=== PATIENT | male | born 1955 | race Caucasian/White ===

== ENCOUNTER 2020-09-28 13:30 | IRF | payer MEDICARE, SELFPAY ==
[2020-09-28 13:28] VITALS: BP 124/81; PULSE 62; RESP 20; TEMP 36.1; O2SAT 99; BMI 33.6
--- NOTE | 2020-09-28 13:40 | ADMGEN ---
Arrived to floor via wheelchair pushed by at 1303. This patient, Ross Guadarrama, was admitted to [facility] Room 221-02. Patient/family oriented to hospital policies and general routines including ID bracelet, bed and alarms, visiting hours, pain management, procedures, bathroom and other care routines, personal items, smoking policy, room service/diet, and visiting hours. Information on how to activate the Rapid Response Team has been discussed. Patient/Family are encouraged to report perceived risks to care and to ask questions if they do not understand what they are told or what they should do.
[2020-09-28] MEDS: traMADol HCL (*CRX) 50 MG TABLET 100 MG PO (14:40)
--- NOTE | 2020-09-28 16:15 | WPDREHABHP ---
H&P: HPI History of Present Illness Date/Time: 09/28/20 16:15 Chief Complaint: lumbar stenosis Narrative: HISTORY OF PRESENT ILLNESS: The patient's primary rehab impairment category is other orthopedic 09 The etiologic diagnosis is Foraminal stenosis of lumbar region, status post L3-L4 OLIF, internal fixation and anterior lumbar plate, L3-L4 posterior spinal fusion I saw this patient [id number] on 09/28/2020 The patient is a 64-year-old male with prior medical history of lumbar stenosis, obesity, osteoarthritis, ulcerative colitis, restless leg syndrome OA, SANJAY treated with BiPAP and CPAP who presented to [facility] on 09/24/2020 with low back pain. He has had increased back pain, bilateral foot numbness, significant loss of balance with daily falls, and increased difficulty with ADLs with worsening symptoms over the last few months. MRI showed multilevel degenerative disc and facet disease worse at L3-4. L2-3 with mild to moderate bilateral foraminal stenosis, L3-L4 mild canal stenosis and severe bilateral foraminal stenosis, L4-5 mild canal stenosis, and moderate right and severe left foraminal stenosis. On 09/24/2020 the patient underwent lumbar surgery by Dr. Castanon of an L3-4 OLIF, internal fixation with anterior lumbar plate, and L3 -L4 posterior spinal fusion. Patient's SETTLEMENT WORKER was discontinued on 09/27. His pain is now controlled with ice tramadol and Tylenol. Patient was issued a TLSO brace and it is to be worn at all times when out of bed. Dressings are to remain intact and can be reinforced. Patient is allowed to shower if dressings remain dry. Patient reports right leg pain has resolved after surgery. He now complains of left lower extremity weakness left groin numbness left lateral thigh numbness. DVT prophylaxis is Lovenox 40 mg daily. Prior level of function. Patient lives with his in a split-level home with main living space on top floor. Patient reports that he has 1 step to enter his home. He then has 7 steps with a landing and additional 7 steps to get to the main floor. The patient reports he was able to go up and down the stairs prior to admission, however he would have to take several rest breaks and was a very slow process. Patient was independent with ADLs prior however the last few months with progressive pain and weakness his has been assisting him. Patient reports he is try to remain as independent as possible. Patient's is retired and is available 247. She is in good health and is agreeable to be the caregiver. The patient was receiving therapy weekly prior to admission. Current level of function: TLSO is to be worn at all times when out of bed. Patient prefers ice for back pain and tramadol and Tylenol. Complains of right lower extremity that has been resolved with surgery. However patient has pain to the left lower extremity weakness, and left lateral and groin numbness. Patient is requiring setup for eating. Grooming is setup. Toileting is Min mod assist. Upper body dressing is Min mod assist. Lower body dressing is max assistance. Bed mobility and transfers are min to mod assist. Ambulation with a roller walker is 150 ft with min mod assist with verbal cues for impulsivity. COVID: The patient has not traveled outside the [place] or had contact with someone who is ill that his travel outside the [place] in the past 21 days patient has not traveled to an area of the [place] that is experiencing no transmission of the Coronavirus has not had close personal contact with anyone that has. Patient has no fever nor expiratory respiratory illness. 09/28/2020 COVID is negative. Therapy was initiated the acute care facility and the patient transferred to us from [facility] on 09/28/2020 FALLS OR SURGERIES: the patient has had major surgery and last 100 days. The patient has had multiple falls in the past year but reports no falls with injury. PRIOR LEVEL OF
[2020-09-28] MEDS: ACETAMINOPHEN 325 MG TABLET 650 MG PO (17:59)
[2020-09-28] MEDS: sulfaSALAzine 500 MG TABLET 1000 MG PO (17:59)
[2020-09-28] MEDS: GABAPENTIN 300 MG CAPSULE 600 MG PO (17:59)
[2020-09-28] MEDS: CALCIUM CARBONATE (OSCAL) 500 MG TABLET PO (17:59)
[2020-09-28] MEDS: clonazePAM (*CRX) 0.5 MG TABLET 1 MG PO (21:09)
[2020-09-28] MEDS: traMADol HCL (*CRX) 50 MG TABLET PO (21:13)
[2020-09-28 22:00] VITALS: BP 130/61; PULSE 69; RESP 18; TEMP 36.3; O2SAT 95
[2020-09-29 05:36] LABS: Basophils Absolute Auto 0.1 K/mm3 (0.0-0.1); Basophils Percent Auto 0.7 % (0.2-1.2); Eosinophils Absolute Auto 0.2 K/mm3 (0-0.3); Eosinophils Percent Auto 1.5 % (0-4.4); Hematocrit 39.3 % (42.0-52.0); Hemoglobin 13.1 g/dL (14.0-18.0); Immature Granulocyte Absolute 0.35 K/mm3 (0.00-0.031); Immature Granulocyte Percent A 2.9 % (0-0.5); Lymphocytes Absolute Auto 1.37 K/mm3 (0.9-3.2); Lymphocytes Percent Auto 11.4 % (18.3-44.2); Mean Corpuscular HGB Conc 33.3 g/dl (32-36); Mean Corpuscular Hemoglobin 31.6 pg (26-34); Mean Corpuscular Volume 94.9 fl (80-100); Mean Platelet Volume 10.5 fl (7.4-10.4); Monocytes Absolute Auto 1.4 K/mm3 (0.1-0.6); Monocytes Percent Auto 11.7 % (2.6-8.5); Neutrophils Absolute Auto 8.6 K/mm3 (1.3-6.7); Neutrophils Percent Auto 71.8 % (45.5-73.1); Platelet Count Result 212 k/mm3 (150-375); Red Blood Count 4.14 M/mm3 (4.6-6.20); Red Cell Distribution Width 12.8 % (11.5-14.5)
[2020-09-29 05:37] LABS: Alanine Aminotransferase 19 U/L (4-50); Albumin Level 3.5 g/dL (3.5-5.1); Alkaline Phosphatase 69 U/L (38-126); Anion Gap 6 mmol/L (8-16); Aspartate Amino Transferase 24 U/L (17-59); Bilirubin,Total 0.6 mg/dL (0.2-1.3); Blood Urea Nitrogen 18 mg/dL (9-20); Carbon Dioxide 30 mmol/L (22-30); Chloride 105 mmol/L (98-107); Estimated CRCL calculation 82 ml/min; Estimated Glomerular Filt Rate > 60; Glucose 98 mg/dL (75-110); Potassium 4.6 mmol/L (3.4-5.0); Sodium 141 mmol/L (137-145)
[2020-09-29 06:00] VITALS: BP 137/70; PULSE 70; RESP 18; TEMP 36.3; O2SAT 96
[2020-09-29] MEDS: GABAPENTIN 300 MG CAPSULE 600 MG PO ×3 (09:31→17:07)
[2020-09-29] MEDS: CHOLECALCIFEROL 1,000 UNITS TABLET 5000 UNITS PO (09:31)
[2020-09-29] MEDS: CYANOCOBALAMIN 1,000 MCG TABLET 1000 MCG PO (09:32)
[2020-09-29] MEDS: ACIDOPHILUS/BULGARICUS CHEWABLE TABLET 1 TABLET BY MOUTH (09:32)
[2020-09-29] MEDS: DOCUSATE SODIUM 100 MG CAPSULE PO (09:32)
[2020-09-29] MEDS: THIAMINE HCL 100 MG TABLET 200 MG PO (09:32)
[2020-09-29] MEDS: OMEGA 3 POLYUNSAT FATTY ACIDS 1 GM CAP PO (09:32)
[2020-09-29] MEDS: CALCIUM CARBONATE (OSCAL) 500 MG TABLET PO ×2 (09:32→17:08)
[2020-09-29] MEDS: MULTIVITAMINS THERAPEUTIC TAB (*BKC) 1 TABLET PO (09:33)
[2020-09-29] MEDS: PANTOPRAZOLE 40 MG TABLET PO (09:33)
[2020-09-29] MEDS: sulfaSALAzine 500 MG TABLET 1000 MG PO ×2 (09:33→17:08)
[2020-09-29] MEDS: FERROUS SULFATE 324 MG TABLET PO (09:33)
[2020-09-29] MEDS: ENOXAPARIN 40 MG/0.4 ML SYRINGE SUB-Q (09:33)
[2020-09-29] MEDS: THIAMINE HCL 50 MG TABLET PO (09:33)
[2020-09-29] MEDS: traMADol HCL (*CRX) 50 MG TABLET 100 MG PO (09:39)
[2020-09-29 13:21] VITALS: BMI 33.6
[2020-09-29 13:31] VITALS: BP 126/66; PULSE 76; RESP 18; TEMP 36.3; O2SAT 97
--- NOTE | 2020-09-29 13:36 | PCNSR ---
On 09/29/20, the student,Liz Mccarty, provided care and [facility] on this patient. I have reviewed the student's documentation and agree with the findings.
--- NOTE | 2020-09-29 14:32 | WPDNEURORHBP ---
Subjective Date/time seen: 09/29/20 14:32 The etiologic diagnosis is Foraminal stenosis of lumbar region, status post L3-L4 OLIF, internal fixation and anterior lumbar plate, L3-L4 posterior spinal fusion The patient is a 64-year-old male with prior medical history of lumbar stenosis, obesity, osteoarthritis, ulcerative colitis, restless leg syndrome, OA, SANJAY treated with CPAP who presented to [facility] on 09/24/2020 with low back pain. He has had increased back pain, bilateral foot numbness, significant loss of balance with daily falls, and increased difficulty with ADLs with worsening symptoms over the last few months. MRI showed multilevel degenerative disc and facet disease worse at L3-4. L2-3 with mild to moderate bilateral foraminal stenosis, L3-L4 mild canal stenosis and severe bilateral foraminal stenosis, L4-5 mild canal stenosis, and moderate right and severe left foraminal stenosis. On 09/24/2020 the patient underwent lumbar surgery by Dr. Castanon of an L3-4 OLIF, internal fixation with anterior lumbar plate, and L3 -L4 posterior spinal fusion. Patient's EXECUTIVE ASSISTANT TO PRESIDENT was discontinued on 09/27. His pain is now controlled with ice, tramadol and Tylenol. Patient was issued a TLSO brace and it is to be worn at all times when out of bed. Dressings are to remain intact and can be reinforced. Patient is allowed to shower if dressings remain dry. Patient reports right leg pain has resolved after surgery. He now complains of left lower extremity weakness left groin numbness left lateral thigh numbness. DVT prophylaxis is Lovenox 40 mg daily. Prior level of function. Patient lives with his in a split-level home with main living space on top floor. Patient reports that he has 1 step to enter his home. He then has 7 steps with a landing and additional 7 steps to get to the main floor. The patient reports he was able to go up and down the stairs prior to admission, however he would have to take several rest breaks and was a very slow process. Patient was independent with ADLs prior however the last few months with progressive pain and weakness his has been assisting him. Patient reports he is try to remain as independent as possible. Patient's is retired and is available 247. She is in good health and is agreeable to be the caregiver. The patient was receiving therapy weekly prior to admission. Current level of function: TLSO is to be worn at all times when out of bed. Patient prefers ice for back pain and tramadol and Tylenol. Complains of right lower extremity that has been resolved with surgery. However patient has pain to the left lower extremity weakness, and left lateral and groin numbness. Patient is requiring setup for eating. Grooming is setup. Toileting is Min mod assist. Upper body dressing is Min mod assist. Lower body dressing is max assistance. Bed mobility and transfers are min to mod assist. Ambulation with a roller walker is 150 ft with min mod assist with verbal cues for impulsivity. 09/29/20 patient complains of neck pain. Patient states he has known cervical stenosis which is the most likely cause of his neck pain. Examiner offered Lidoderm patch, however patient wished to just have a pain pill at this time. Wbc's are mildly elevated at 12 on admitting blood work. Patient will have scheduled tramadol 50 mg before a.m. and p.m. therapies and at bedtime. Patient routinely took tramadol 50 mg 3 times a day at home prior to his surgeries. Review of Systems Eyes: Eyes: Reports no additional eye complaints ENT: Reports system reviewed and no additional complaints, except as documented Genitourinary: Genitourinary: Reports no additional male genitourinary complaints Musculoskeletal: Musculoskeletal: Reports back pain, Reports myalgias, Reports arthralgias and Reports stiffness Neurologic: Reports system reviewed and no additional complaints, except as documented Psychiatric: Psychiatric: Re
[2020-09-29] MEDS: clonazePAM (*CRX) 0.5 MG TABLET 1 MG PO (20:47)
[2020-09-29] MEDS: traMADol HCL (*CRX) 50 MG TABLET PO (20:47)
[2020-09-29 22:00] VITALS: BP 132/56; PULSE 75; RESP 18; TEMP 37.2; O2SAT 98
[2020-09-30 02:11] VITALS: PULSE 65; O2SAT 92
[2020-09-30 06:00] VITALS: BP 123/74; PULSE 68; RESP 18; TEMP 37.1; O2SAT 96
[2020-09-30] MEDS: sulfaSALAzine 500 MG TABLET 1000 MG PO ×2 (07:49→17:33)
[2020-09-30] MEDS: CHOLECALCIFEROL 1,000 UNITS TABLET 5000 UNITS PO (07:49)
[2020-09-30] MEDS: FERROUS SULFATE 324 MG TABLET PO (07:50)
[2020-09-30] MEDS: MULTIVITAMINS THERAPEUTIC TAB (*BKC) 1 TABLET PO (07:50)
[2020-09-30] MEDS: CALCIUM CARBONATE (OSCAL) 500 MG TABLET PO ×2 (07:50→17:33)
[2020-09-30] MEDS: DOCUSATE SODIUM 100 MG CAPSULE PO (07:50)
[2020-09-30] MEDS: ACIDOPHILUS/BULGARICUS CHEWABLE TABLET 1 TABLET BY MOUTH (07:50)
[2020-09-30] MEDS: THIAMINE HCL 50 MG TABLET PO (07:50)
[2020-09-30] MEDS: OMEGA 3 POLYUNSAT FATTY ACIDS 1 GM CAP PO (07:50)
[2020-09-30] MEDS: GABAPENTIN 300 MG CAPSULE 600 MG PO ×3 (07:50→17:33)
[2020-09-30] MEDS: PANTOPRAZOLE 40 MG TABLET PO (07:50)
[2020-09-30] MEDS: CYANOCOBALAMIN 1,000 MCG TABLET 1000 MCG PO (07:51)
[2020-09-30] MEDS: ENOXAPARIN 40 MG/0.4 ML SYRINGE SUB-Q (07:51)
[2020-09-30] MEDS: THIAMINE HCL 100 MG TABLET 200 MG PO (07:51)
[2020-09-30] MEDS: traMADol HCL (*CRX) 50 MG TABLET PO ×3 (07:51→20:41)
--- NOTE | 2020-09-30 11:46 | WPDNEURORHBP ---
Subjective Date/time seen: 09/30/20 11:46 Foraminal stenosis of lumbar region, status post L3-L4 OLIF, internal fixation and anterior lumbar plate, L3-L4 posterior spinal fusion The patient is a 64-year-old male with prior medical history of lumbar stenosis, obesity, osteoarthritis, ulcerative colitis, restless leg syndrome, OA, SANJAY treated with CPAP who presented to [facility] on 09/24/2020 with low back pain. He has had increased back pain, bilateral foot numbness, significant loss of balance with daily falls, and increased difficulty with ADLs with worsening symptoms over the last few months. MRI showed multilevel degenerative disc and facet disease worse at L3-4. L2-3 with mild to moderate bilateral foraminal stenosis, L3-L4 mild canal stenosis and severe bilateral foraminal stenosis, L4-5 mild canal stenosis, and moderate right and severe left foraminal stenosis. On 09/24/2020 the patient underwent lumbar surgery by Dr. Castanon of an L3-4 OLIF, internal fixation with anterior lumbar plate, and L3 -L4 posterior spinal fusion. Patient's MANAGER GAME was discontinued on 09/27. His pain is now controlled with ice, tramadol and Tylenol. Patient was issued a TLSO brace and it is to be worn at all times when out of bed. Dressings are to remain intact and can be reinforced. Patient is allowed to shower if dressings remain dry. Patient reports right leg pain has resolved after surgery. He now complains of left lower extremity weakness left groin numbness left lateral thigh numbness. DVT prophylaxis is Lovenox 40 mg daily. Prior level of function. Patient lives with his in a split-level home with main living space on top floor. Patient reports that he has 1 step to enter his home. He then has 7 steps with a landing and additional 7 steps to get to the main floor. The patient reports he was able to go up and down the stairs prior to admission, however he would have to take several rest breaks and was a very slow process. Patient was independent with ADLs prior however the last few months with progressive pain and weakness his has been assisting him. Patient reports he is try to remain as independent as possible. Patient's is retired and is available 247. She is in good health and is agreeable to be the caregiver. The patient was receiving therapy weekly prior to admission. Current level of function: TLSO is to be worn at all times when out of bed. Patient prefers ice for back pain and tramadol and Tylenol. Complains of right lower extremity that has been resolved with surgery. However patient has pain to the left lower extremity weakness, and left lateral and groin numbness. Patient is requiring setup for eating. Grooming is setup. Toileting is Min mod assist. Upper body dressing is Min mod assist. Lower body dressing is max assistance. Bed mobility and transfers are min to mod assist. Ambulation with a roller walker is 150 ft with min mod assist with verbal cues for impulsivity. 09/29/20 patient complains of neck pain. Patient states he has known cervical stenosis which is the most likely cause of his neck pain. Examiner offered Lidoderm patch, however patient wished to just have a pain pill at this time. Wbc's are mildly elevated at 12 on admitting blood work. Patient will have scheduled tramadol 50 mg before a.m. and p.m. therapies and at bedtime. Patient routinely took tramadol 50 mg 3 times a day at home prior to his surgeries. 09/30/20 patient is seen with occupational and physical therapy this morning. Patient complains of arthritic pain to bilateral hips neck and back. Patient does not wish for any change in his current tramadol. Patient is participating nicely with therapy. Review of Systems Eyes: Eyes: Reports no additional eye complaints ENT: Reports system reviewed and no additional complaints, except as documented Genitourinary: Genitourinary: Reports no additional male genitourinary complaints Musc
--- NOTE | 2020-09-30 13:31 | RPD ---
INDIVIDUALIZED PLAN OF CARE FOR Ross Guadarrama Brief Synthesis of Pre-Admission Screen, Post-Admission Evaluation and Therapy Evaluations: The patient presents to rehab with lumbar radiculopathy, foraminal stenosis of lumbar region, degenerative disc disease of lumbar spine, and facet arthroplasty of lumbar spine s/p L3-4 OLIF, internal fixation with anterior lumbar plate, L3-4 PSF. Comorbidities include lumbar radiculopathy, foraminal stenosis of lumbar region, degenerative disc disease of lumbar spine, facet arthroplasty of lumbar spine, carpal tunnel syndrome, bilateral knee pain, obesity, hyperlipidemia, chronic fatty liver, GERD, insomnia, SANJAY on CPAP, restless leg syndrome, peripheral sensory neuropathy, iron deficiency anemia, osteoarthritis, and ulcerative colitis s/p colectomy. The complexity of the patient's medical management, nursing, and therapy needs require an inpatient rehab hospital stay with a physician-led interdisciplinary team approach. The patient?s needs will be best met in an intensive program vs. at a lower level of care. The patient requires physician services for medical oversight, management of post-op complications in setting of present comorbidities, and pain management. The patient requires nursing services for anticoagulation therapy, diabetes training, DVT prophylactics, possible IV administration, infection protection, medication management and education, pressure relief, and wound care. Deficits include: ADLs, Balance, Endurance, Family Training/Education, Mobility, Pain Management, ROM, Safety, Strength, and Transfers Steam Box Operator/Case Management for: Discharge Planning and Patient/Family Counseling Physical Therapy: 5 days per week for 90 minutes. Treatments may include: Therapeutic Exercise, Gait Training, Neuromuscular Re-education, Transfer Training, Community Reintegration, Bed Mobility, Patient/Family Education, Wheelchair Mobility Group Therapy/Concurrent Therapy Rationales: -Improve attention span during functional activities in a distracted environment. -Enhance problem solving and/or adequate judgment skills during functional activities in a distracted environment. -Promote increased safety awareness in a distracted environment to reduce fall risk with functional tasks, transfers, and ambulation to allow a more safe, self-sufficient return to the home environment. -Improve dynamic balance skills to promote safety and independence with functional activities in a distracted environment for maximum gain. Occupational Therapy: 5 days per week for 90 minutes. Treatments may include: Therapeutic Exercise, Therapeutic Activity, Cognitive Training, Self-Care Transfer Training, Community Reintegration, Home Management, Patient/Family Education, Wheelchair Mobility Training, Energy Conservation Training Group Therapy/Concurrent Therapy Rationales: -Allow therapist to observe and teach generalization and carry-over of skills learned in individual therapy. -Enhance problem solving and sequencing skills during therapeutic activities in a distracted environment. -Promote increased safety awareness in a realistic setting to reduce fall risk with functional tasks due to visual and verbal distractions. -Increase functional level with ADLs, ADL transfers and use of adaptive equipment through therapeutic activities with others while promoting safety to allow a more safe, self-sufficient return home. Medical Prognosis: Good Anticipated Length of Stay: 10 days Rehab Goals: Eating Goal: 06-Independent Oral Hygiene Goal: 06-Independent Toileting Hygiene Goal: 06-Independent Shower/Bathe Self Goal: 06-Independent Upper Body Dressing Goal: 06-Independent Lower Body Dressing Goal: 06-Independent Putting On/Taking Off Footwear Goal: 06-Independent Rolling Left and Right Goal: 06-Independent Sit to Lying Goal: 06-Independent Lying to Sitting on Side of Bed Goal: 06-Independent Sit to Stand Goal: 06-Independent Chair/Faq-ma-Uhhho Merida
[2020-09-30 14:00] VITALS: BP 122/64; PULSE 69; RESP 18; TEMP 36.7; O2SAT 95
--- NOTE | 2020-09-30 15:24 | PCPTNOTE ---
Ross Guadarrama was evaluated for a wheeled walker on 09/30/2020 by this physical therapist. The wheeled walker will resolve patient's mobility limitations and will be used for ADL's within the home. The patient can safely use the wheeled walker. ?The wheeled walker will resolve the patient?s mobility deficits, including decreased B LE strength and balance deficits.
--- NOTE | 2020-09-30 16:48 | PM.IMCN ---
Assessment and Plan Assessment and plan (1) S/P lumbar spinal fusion: Code(s): Z98.1 - Arthrodesis status Status: Acute Assessment and Plan: 09/24/20 at [facility] by Dr Castanon - s/p L3-4 OLIF, internal fixation with anterior lumbar plate, and L3 -L4 posterior spinal fusion. Management per rehab team. PT/OT. TLSO brace at all times when out of bed. Follow up with his neurosurgeon after discharge. (2) Peripheral sensory neuropathy: Code(s): G60.8 - Other hereditary and idiopathic neuropathies Status: Chronic Assessment and Plan: Continue gabapentin. (3) Ulcerative colitis: Qualifiers: Ulcerative colitis location: unspecified ulcerative colitis location Digestive disease complication type: without complication Qualified Code(s): K51.90 - Ulcerative colitis, unspecified, without complications Code(s): K51.90 - Ulcerative colitis, unspecified, without complications Status: Chronic Assessment and Plan: No acute issues. Continue his sulfasalazine. (4) Obstructive sleep apnea: Code(s): G47.33 - Obstructive sleep apnea (adult) (pediatric) Status: Chronic Assessment and Plan: Brought his CPAP from home. (5) Restless leg syndrome: Code(s): G25.81 - Restless legs syndrome Status: Chronic Assessment and Plan: Continue his clonazepam at night time. (6) Iron deficiency anemia: Qualifiers: Iron deficiency anemia type: unspecified iron deficiency Qualified Code(s): D50.9 - Iron deficiency anemia, unspecified Code(s): D50.9 - Iron deficiency anemia, unspecified Status: Chronic Assessment and Plan: Mildly decreased Hgb on arrival at 13.1 without evidence of acute bleeding. Continue his home iron and B12 supplementation and monitor CBC intermittently. (7) GERD (gastroesophageal reflux disease): Qualifiers: Esophagitis presence: without esophagitis Qualified Code(s): K21.9 - Gastro-esophageal reflux disease without esophagitis Code(s): K21.9 - Gastro-esophageal reflux disease without esophagitis Status: Chronic Assessment and Plan: No acute issues. Continue protonix. Additional Plan A mild leukocytosis 12,000 is noted on arrival yesterday. He is afebrile without any other signs or symptoms of infection. Monitor CBC intermittently; monitor vital signs. Thank you for allowing me to participate in this pleasant gentleman's care. Our team will follow with you peripherally while he is here. Please call for any medical questions or concerns. HPI Data of Consult Consult date: 09/30/20 Requesting Physician: Humera Galvez DO Primary Care Provider: Sudhir De La TorreMD Consult Narrative Reason for consult: Medical Management Narrative: Date of Service 09/30/20 1983 We are asked to see this patient in consultation at the request of Dr Medina for management of medical conditions while in acute rehab. The supervising physician for this medical consultation is Dr Soraya Mancilla. Mr. Guadarrama is a very pleasant 64yo M with history of chronic osteoarthritis and back pain and peripheral neuropathy, SANJAY compliant with CPAP, restless leg syndrome who was admitted to the acute rehab center on 09/28/20 following a back surgery performed at [facility]. He had worsening back pain ongoing for several weeks and presented to [facility] for evaluation of pain, gait dysfunction and falls. See Rehab H&P for full details. He underwent lumbar OLIF with anterior lumbar plate and L3-L4 posterior spinal fusion. He reports doing well toda
[2020-09-30] MEDS: clonazePAM (*CRX) 0.5 MG TABLET 1 MG PO (20:41)
[2020-09-30 22:00] VITALS: BP 124/67; PULSE 57; RESP 18; TEMP 35.8; O2SAT 97
[2020-10-01 06:00] VITALS: BP 121/69; PULSE 53; RESP 18; TEMP 35.9; O2SAT 98
[2020-10-01] MEDS: traMADol HCL (*CRX) 50 MG TABLET PO ×3 (09:20→20:01)
[2020-10-01] MEDS: ACIDOPHILUS/BULGARICUS CHEWABLE TABLET 1 TABLET BY MOUTH (09:21)
[2020-10-01] MEDS: CYANOCOBALAMIN 1,000 MCG TABLET 1000 MCG PO (09:21)
[2020-10-01] MEDS: ENOXAPARIN 40 MG/0.4 ML SYRINGE SUB-Q (09:21)
[2020-10-01] MEDS: DOCUSATE SODIUM 100 MG CAPSULE PO (09:21)
[2020-10-01] MEDS: CHOLECALCIFEROL 1,000 UNITS TABLET 5000 UNITS PO (09:21)
[2020-10-01] MEDS: CALCIUM CARBONATE (OSCAL) 500 MG TABLET PO ×2 (09:21→18:06)
[2020-10-01] MEDS: GABAPENTIN 300 MG CAPSULE 600 MG PO ×3 (09:22→18:06)
[2020-10-01] MEDS: FERROUS SULFATE 324 MG TABLET PO (09:22)
[2020-10-01] MEDS: MULTIVITAMINS THERAPEUTIC TAB (*BKC) 1 TABLET PO (09:22)
[2020-10-01] MEDS: sulfaSALAzine 500 MG TABLET 1000 MG PO ×2 (09:22→18:08)
[2020-10-01] MEDS: OMEGA 3 POLYUNSAT FATTY ACIDS 1 GM CAP PO (09:22)
[2020-10-01] MEDS: PANTOPRAZOLE 40 MG TABLET PO (09:22)
[2020-10-01] MEDS: THIAMINE HCL 50 MG TABLET PO (09:23)
[2020-10-01] MEDS: THIAMINE HCL 100 MG TABLET 200 MG PO (09:23)
--- NOTE | 2020-10-01 11:40 | WPDNEURORHBP ---
Subjective Date/time seen: 10/01/20 11:40 Interval history: Foraminal stenosis of lumbar region, status post L3-L4 OLIF, internal fixation and anterior lumbar plate, L3-L4 posterior spinal fusion The patient is a 64-year-old male with prior medical history of lumbar stenosis, obesity, osteoarthritis, ulcerative colitis, restless leg syndrome, OA, SANJAY treated with CPAP who presented to [facility] on 09/24/2020 with low back pain. He has had increased back pain, bilateral foot numbness, significant loss of balance with daily falls, and increased difficulty with ADLs with worsening symptoms over the last few months. MRI showed multilevel degenerative disc and facet disease worse at L3-4. L2-3 with mild to moderate bilateral foraminal stenosis, L3-L4 mild canal stenosis and severe bilateral foraminal stenosis, L4-5 mild canal stenosis, and moderate right and severe left foraminal stenosis. On 09/24/2020 the patient underwent lumbar surgery by Dr. Castanon of an L3-4 OLIF, internal fixation with anterior lumbar plate, and L3 -L4 posterior spinal fusion. Patient's CHECK INSPECTOR was discontinued on 09/27. His pain is now controlled with ice, tramadol and Tylenol. Patient was issued a TLSO brace and it is to be worn at all times when out of bed. Dressings are to remain intact and can be reinforced. Patient is allowed to shower if dressings remain dry. Patient reports right leg pain has resolved after surgery. He now complains of left lower extremity weakness left groin numbness left lateral thigh numbness. DVT prophylaxis is Lovenox 40 mg daily. Prior level of function. Patient lives with his in a split-level home with main living space on top floor. Patient reports that he has 1 step to enter his home. He then has 7 steps with a landing and additional 7 steps to get to the main floor. The patient reports he was able to go up and down the stairs prior to admission, however he would have to take several rest breaks and was a very slow process. Patient was independent with ADLs prior however the last few months with progressive pain and weakness his has been assisting him. Patient reports he is try to remain as independent as possible. Patient's is retired and is available 247. She is in good health and is agreeable to be the caregiver. The patient was receiving therapy weekly prior to admission. Current level of function: TLSO is to be worn at all times when out of bed. Patient prefers ice for back pain and tramadol and Tylenol. Complains of right lower extremity that has been resolved with surgery. However patient has pain to the left lower extremity weakness, and left lateral and groin numbness. Patient is requiring setup for eating. Grooming is setup. Toileting is Min mod assist. Upper body dressing is Min mod assist. Lower body dressing is max assistance. Bed mobility and transfers are min to mod assist. Ambulation with a roller walker is 150 ft with min mod assist with verbal cues for impulsivity. 09/29/20 patient complains of neck pain. Patient states he has known cervical stenosis which is the most likely cause of his neck pain. Examiner offered Lidoderm patch, however patient wished to just have a pain pill at this time. Wbc's are mildly elevated at 12 on admitting blood work. Patient will have scheduled tramadol 50 mg before a.m. and p.m. therapies and at bedtime. Patient routinely took tramadol 50 mg 3 times a day at home prior to his surgeries. 09/30/20 patient is seen with occupational and physical therapy this morning. Patient complains of arthritic pain to bilateral hips neck and back. Patient does not wish for any change in his current tramadol. Patient is participating nicely with therapy. 10/01/20 Patient's overall pain is markedly improved. Patient was ambulating with a walker and has now been switched to a cane due to patient's improved overall balance and lower extremity strength. Review of Systems Eyes:
[2020-10-01 14:00] VITALS: BP 124/66; PULSE 85; RESP 18; TEMP 35.6; O2SAT 96
[2020-10-01] MEDS: clonazePAM (*CRX) 0.5 MG TABLET 1 MG PO (20:01)
[2020-10-01 22:00] VITALS: BP 140/85; PULSE 94; RESP 18; TEMP 37.1; O2SAT 95
[2020-10-02 06:00] VITALS: BP 127/75; PULSE 65; RESP 16; TEMP 36.6; O2SAT 98
[2020-10-02 08:00] VITALS: PULSE 65; RESP 16; O2SAT 98
--- NOTE | 2020-10-02 08:12 | P.PNNERE_ITS ---
Subjective Date/time seen: 10/02/20 08:12 Interval history: Foraminal stenosis of lumbar region, status post L3-L4 OLIF, internal fixation and anterior lumbar plate, L3-L4 posterior spinal fusion The patient is a 64-year-old male with prior medical history of lumbar stenosis, obesity, osteoarthritis, ulcerative colitis, restless leg syndrome, OA, SANJAY treated with CPAP who presented to [facility] on 09/24/2020 with low back pain. He has had increased back pain, bilateral foot numbness, significant loss of balance with daily falls, and increased difficulty with ADLs with worsening symptoms over the last few months. MRI showed multilevel degenerative disc and facet disease worse at L3-4. L2-3 with mild to moderate bilateral foraminal stenosis, L3-L4 mild canal stenosis and severe bilateral foraminal stenosis, L4-5 mild canal stenosis, and moderate right and severe left foraminal stenosis. On 09/24/2020 the patient underwent lumbar surgery by Dr. Castanon of an L3-4 OLIF, internal fixation with anterior lumbar plate, and L3 -L4 posterior spinal fusion. Patient's PROCESS SPECIALIST was discontinued on 09/27. His pain is now controlled with ice, tramadol and Tylenol. Patient was issued a TLSO brace and it is to be worn at all times when out of bed. Dressings are to remain intact and can be reinforced. Patient is allowed to shower if dressings remain dry. Patient reports right leg pain has resolved after surgery. He now complains of left lower extremity weakness left groin numbness left lateral thigh numbness. DVT prophylaxis is Lovenox 40 mg daily. Prior level of function. Patient lives with his in a split-level home with main living space on top floor. Patient reports that he has 1 step to enter his home. He then has 7 steps with a landing and additional 7 steps to get to the main floor. The patient reports he was able to go up and down the stairs prior to admission, however he would have to take several rest breaks and was a very slow process. Patient was independent with ADLs prior however the last few months with progressive pain and weakness his has been assisting him. Patient reports he is try to remain as independent as possible. Patient's is retired and is available 247. She is in good health and is agreeable to be the caregiver. The patient was receiving therapy weekly prior to admission. Current level of function: TLSO is to be worn at all times when out of bed. Patient prefers ice for back pain and tramadol and Tylenol. Complains of right lower extremity that has been resolved with surgery. However patient has pain to the left lower extremity weakness, and left lateral and groin numbness. Pa tient is requiring setup for eating. Grooming is setup. Toileting is Min mod assist. Upper body dressing is Min mod assist. Lower body dressing is max assistance. Bed mobility and transfers are min to mod assist. Ambulation with a roller walker is 150 ft with min mod assist with verbal cues for impulsivity. 09/29/20 patient complains of neck pain. Patient states he has known cervical stenosis which is the most likely cause of his neck pain. Examiner offered Lidoderm patch, however patient wished to just have a pain pill at this time. Wbc's are mildly elevated at 12 on admitting blood work. Patient will have scheduled tramadol 50 mg before a.m. and p.m. therapies and at bedtime. Patient routinely took tramadol 50 mg 3 times a day at home prior to his surgeries. 09/30/20 patient is seen with occupational and physical therapy this morning. Patient complains of arthritic pain to bilateral hips neck and back. Patient does not wish for any change in his current tramadol. Patient is participating nicely with therapy. 10/01/20 Patient's laura
[2020-10-02] MEDS: THIAMINE HCL 100 MG TABLET 200 MG PO (09:53)
[2020-10-02] MEDS: OMEGA 3 POLYUNSAT FATTY ACIDS 1 GM CAP PO (09:53)
[2020-10-02] MEDS: CYANOCOBALAMIN 1,000 MCG TABLET 1000 MCG PO (09:53)
[2020-10-02] MEDS: ACIDOPHILUS/BULGARICUS CHEWABLE TABLET 1 TABLET BY MOUTH (09:53)
[2020-10-02] MEDS: MULTIVITAMINS THERAPEUTIC TAB (*BKC) 1 TABLET PO (09:53)
[2020-10-02] MEDS: CHOLECALCIFEROL 1,000 UNITS TABLET 5000 UNITS PO (09:53)
[2020-10-02] MEDS: CALCIUM CARBONATE (OSCAL) 500 MG TABLET PO ×2 (09:54→17:23)
[2020-10-02] MEDS: DOCUSATE SODIUM 100 MG CAPSULE PO (09:54)
[2020-10-02] MEDS: PANTOPRAZOLE 40 MG TABLET PO (09:54)
[2020-10-02] MEDS: THIAMINE HCL 50 MG TABLET PO (09:54)
[2020-10-02] MEDS: ENOXAPARIN 40 MG/0.4 ML SYRINGE SUB-Q (09:54)
[2020-10-02] MEDS: FERROUS SULFATE 324 MG TABLET PO (09:54)
[2020-10-02] MEDS: GABAPENTIN 300 MG CAPSULE 600 MG PO ×3 (09:54→17:23)
[2020-10-02] MEDS: sulfaSALAzine 500 MG TABLET 1000 MG PO ×2 (09:55→17:23)
[2020-10-02] MEDS: traMADol HCL (*CRX) 50 MG TABLET PO ×3 (09:59→20:33)
[2020-10-02 14:00] VITALS: BP 119/88; PULSE 73; RESP 20; TEMP 36.7; O2SAT 95
[2020-10-02] MEDS: clonazePAM (*CRX) 0.5 MG TABLET 1 MG PO (20:29)
[2020-10-02 22:00] VITALS: BP 124/67; PULSE 67; RESP 16; TEMP 36.9; O2SAT 97
[2020-10-03 06:00] VITALS: BP 114/62; PULSE 60; RESP 16; TEMP 36.8; O2SAT 96
[2020-10-03 08:00] VITALS: PULSE 60; RESP 16; O2SAT 96
--- NOTE | 2020-10-03 08:20 | WPDNEURORHBP ---
Subjective Date/time seen: 10/03/20 08:20 Interval history: Foraminal stenosis of lumbar region, status post L3-L4 OLIF, internal fixation and anterior lumbar plate, L3-L4 posterior spinal fusion The patient is a 64-year-old male with prior medical history of lumbar stenosis, obesity, osteoarthritis, ulcerative colitis, restless leg syndrome, OA, SANJAY treated with CPAP who presented to [facility] on 09/24/2020 with low back pain. He has had increased back pain, bilateral foot numbness, significant loss of balance with daily falls, and increased difficulty with ADLs with worsening symptoms over the last few months. MRI showed multilevel degenerative disc and facet disease worse at L3-4. L2-3 with mild to moderate bilateral foraminal stenosis, L3-L4 mild canal stenosis and severe bilateral foraminal stenosis, L4-5 mild canal stenosis, and moderate right and severe left foraminal stenosis. On 09/24/2020 the patient underwent lumbar surgery by Dr. Castanon of an L3-4 OLIF, internal fixation with anterior lumbar plate, and L3 -L4 posterior spinal fusion. Patient's US CUSTOMS AND BORDER OFFICER was discontinued on 09/27. His pain is now controlled with ice, tramadol and Tylenol. Patient was issued a TLSO brace and it is to be worn at all times when out of bed. Dressings are to remain intact and can be reinforced. Patient is allowed to shower if dressings remain dry. Patient reports right leg pain has resolved after surgery. He now complains of left lower extremity weakness left groin numbness left lateral thigh numbness. DVT prophylaxis is Lovenox 40 mg daily. Prior level of function. Patient lives with his in a split-level home with main living space on top floor. Patient reports that he has 1 step to enter his home. He then has 7 steps with a landing and additional 7 steps to get to the main floor. The patient reports he was able to go up and down the stairs prior to admission, however he would have to take several rest breaks and was a very slow process. Patient was independent with ADLs prior however the last few months with progressive pain and weakness his has been assisting him. Patient reports he is try to remain as independent as possible. Patient's is retired and is available 247. She is in good health and is agreeable to be the caregiver. The patient was receiving therapy weekly prior to admission. Current level of function: TLSO is to be worn at all times when out of bed. Patient prefers ice for back pain and tramadol and Tylenol. Complains of right lower extremity that has been resolved with surgery. However patient has pain to the left lower extremity weakness, and left lateral and groin numbness. Patient is requiring setup for eating. Grooming is setup. Toileting is Min mod assist. Upper body dressing is Min mod assist. Lower body dressing is max assistance. Bed mobility and transfers are min to mod assist. Ambulation with a roller walker is 150 ft with min mod assist with verbal cues for impulsivity. 09/29/20 patient complains of neck pain. Patient states he has known cervical stenosis which is the most likely cause of his neck pain. Examiner offered Lidoderm patch, however patient wished to just have a pain pill at this time. Wbc's are mildly elevated at 12 on admitting blood work. Patient will have scheduled tramadol 50 mg before a.m. and p.m. therapies and at bedtime. Patient routinely took tramadol 50 mg 3 times a day at home prior to his surgeries. 09/30/20 patient is seen with occupational and physical therapy this morning. Patient complains of arthritic pain to bilateral hips neck and back. Patient does not wish for any change in his current tramadol. Patient is participating nicely with therapy. 10/01/20 Patient's overall pain is markedly improved. Patient was ambulating with a walker and has now been switched to a cane due to patient's improved overall balance and lower extremity strength. 10/02/20 patient has her m
[2020-10-03] MEDS: sulfaSALAzine 500 MG TABLET 1000 MG PO ×2 (09:31→17:21)
[2020-10-03] MEDS: FERROUS SULFATE 324 MG TABLET PO (09:31)
[2020-10-03] MEDS: GABAPENTIN 300 MG CAPSULE 600 MG PO ×3 (09:31→17:21)
[2020-10-03] MEDS: CALCIUM CARBONATE (OSCAL) 500 MG TABLET PO ×2 (09:32→17:22)
[2020-10-03] MEDS: CYANOCOBALAMIN 1,000 MCG TABLET 1000 MCG PO (09:32)
[2020-10-03] MEDS: THIAMINE HCL 100 MG TABLET 200 MG PO (09:32)
[2020-10-03] MEDS: ACIDOPHILUS/BULGARICUS CHEWABLE TABLET 1 TABLET BY MOUTH (09:32)
[2020-10-03] MEDS: THIAMINE HCL 50 MG TABLET PO (09:32)
[2020-10-03] MEDS: PANTOPRAZOLE 40 MG TABLET PO (09:32)
[2020-10-03] MEDS: OMEGA 3 POLYUNSAT FATTY ACIDS 1 GM CAP PO (09:32)
[2020-10-03] MEDS: CHOLECALCIFEROL 1,000 UNITS TABLET 5000 UNITS PO (09:32)
[2020-10-03] MEDS: DOCUSATE SODIUM 100 MG CAPSULE PO (09:33)
[2020-10-03] MEDS: ENOXAPARIN 40 MG/0.4 ML SYRINGE SUB-Q (09:33)
[2020-10-03] MEDS: MULTIVITAMINS THERAPEUTIC TAB (*BKC) 1 TABLET PO (09:33)
[2020-10-03] MEDS: traMADol HCL (*CRX) 50 MG TABLET PO ×3 (09:38→20:29)
[2020-10-03 14:00] VITALS: BP 137/75; PULSE 75; RESP 18; TEMP 36.2; O2SAT 96
[2020-10-03 18:25] VITALS: TEMP 36.2
[2020-10-03] MEDS: ACETAMINOPHEN 325 MG TABLET 650 MG PO (18:25)
[2020-10-03] MEDS: clonazePAM (*CRX) 0.5 MG TABLET 1 MG PO (20:29)
[2020-10-03 21:44] VITALS: BP 126/56; PULSE 76; RESP 18; TEMP 36.9; O2SAT 98
[2020-10-04 03:15] VITALS: PULSE 78; RESP 14; O2SAT 97
[2020-10-04 06:00] VITALS: BP 115/59; PULSE 59; RESP 20; TEMP 35.7; O2SAT 97
[2020-10-04] MEDS: traMADol HCL (*CRX) 50 MG TABLET PO (08:47)
[2020-10-04] MEDS: DOCUSATE SODIUM 100 MG CAPSULE PO (08:47)
[2020-10-04] MEDS: MULTIVITAMINS THERAPEUTIC TAB (*BKC) 1 TABLET PO (08:48)
[2020-10-04] MEDS: OMEGA 3 POLYUNSAT FATTY ACIDS 1 GM CAP PO (08:48)
[2020-10-04] MEDS: CALCIUM CARBONATE (OSCAL) 500 MG TABLET PO (08:48)
[2020-10-04] MEDS: GABAPENTIN 300 MG CAPSULE 600 MG PO (08:48)
[2020-10-04] MEDS: THIAMINE HCL 100 MG TABLET 200 MG PO (08:48)
[2020-10-04] MEDS: sulfaSALAzine 500 MG TABLET 1000 MG PO (08:48)
[2020-10-04] MEDS: THIAMINE HCL 50 MG TABLET PO (08:48)
[2020-10-04] MEDS: FERROUS SULFATE 324 MG TABLET PO (08:49)
[2020-10-04] MEDS: ACIDOPHILUS/BULGARICUS CHEWABLE TABLET 1 TABLET BY MOUTH (08:49)
[2020-10-04] MEDS: CYANOCOBALAMIN 1,000 MCG TABLET 1000 MCG PO (08:49)
[2020-10-04] MEDS: PANTOPRAZOLE 40 MG TABLET PO (08:49)
[2020-10-04] MEDS: CHOLECALCIFEROL 1,000 UNITS TABLET 5000 UNITS PO (08:49)
--- NOTE | 2020-10-04 09:17 | PM.DS ---
DS: Admitting Diagnosis Admitting Diagnosis Admitting Diagnosis: foraminal stenosis lumbar DS: Discharge Diagnosis Discharge Diagnosis (1) S/P lumbar spinal fusion: Code(s): Z98.1 - Arthrodesis status Status: Acute Assessment and Plan: keep the dressing dry. Patient is to follow-up with Teodora SOLANO WINCH DRIVER (2) Chronic lumbar radiculopathy: Code(s): M54.16 - Radiculopathy, lumbar region Status: Acute Assessment and Plan: monitor (3) Peripheral sensory neuropathy: Code(s): G60.8 - Other hereditary and idiopathic neuropathies Status: Chronic Assessment and Plan: 600 mg t.i.d. gabapentin (4) Ulcerative colitis: Qualifiers: Ulcerative colitis location: unspecified ulcerative colitis location Digestive disease complication type: without complication Qualified Code(s): K51.90 - Ulcerative colitis, unspecified, without complications Code(s): K51.90 - Ulcerative colitis, unspecified, without complications Status: Chronic Assessment and Plan: sulfasalazine (5) Obstructive sleep apnea: Code(s): G47.33 - Obstructive sleep apnea (adult) (pediatric) Status: Chronic Assessment and Plan: BiPAP (6) Hyperlipidemia: Code(s): E78.5 - Hyperlipidemia, unspecified Status: Acute (7) Fatty liver: Code(s): K76.0 - Fatty (change of) liver, not elsewhere classified Status: Acute (8) Iron deficiency anemia: Qualifiers: Iron deficiency anemia type: unspecified iron deficiency Qualified Code(s): D50.9 - Iron deficiency anemia, unspecified Code(s): D50.9 - Iron deficiency anemia, unspecified Status: Chronic Assessment and Plan: supplement (9) Vitamin D deficiency: Code(s): E55.9 - Vitamin D deficiency, unspecified Status: Acute Assessment and Plan: supplement (10) Vitamin B12 deficiency: Code(s): E53.8 - Deficiency of other specified B group vitamins Status: Acute Assessment and Plan: supplement (11) Splenomegaly: Code(s): R16.1 - Splenomegaly, not elsewhere classified Status: Acute (12) Restless leg syndrome: Code(s): G25.81 - Restless legs syndrome Status: Chronic (13) Insomnia: Code(s): G47.00 - Insomnia, unspecified Status: Acute (14) GERD (gastroesophageal reflux disease): Qualifiers: Esophagitis presence: without esophagitis Qualified Code(s): K21.9 - Gastro-esophageal reflux disease without esophagitis Code(s): K21.9 - Gastro-esophageal reflux disease without esophagitis Status: Chronic Assessment and Plan: Josuéononaveed (15) Osteoarthritis: Code(s): M19.90 - Unspecified osteoarthritis, unspecified site Status: Acute Assessment and Plan: ice (16) Ventricular premature contractions: Code(s): I49.3 - Ventricular premature depolarization Status: Acute (17) Bilateral knee pain: Code(s): M25.561 - Pain in right knee; M25.562 - Pain in left knee Status: Acute DS: Summary Hospital Course Hospital Course: Interval history: Foraminal stenosis of lumbar region, status post L3-L4 OLIF, internal fixation and anterior lumbar plate, L3-L4 posterior spinal fusion The patient is a 64-year-old male with prior medical history of lumbar stenosis, obesity, osteoarthritis, ulcerative colitis, restless leg syndrome, OA, SANJAY treated with CPAP who presented to [facility] on 09/24/2020 with low back pain. He has had increased back pain, bilateral foot numbness, significant loss of balance with daily falls, and increased difficulty with ADLs with worsening symptoms over the last few months. MRI showed multilevel degenerative disc and facet disease worse at L3-4. L2-3 with mild to moderate bilateral foraminal stenosis, L3-L4 mild canal stenosis and severe bilateral foraminal stenosis, L4-5 mild canal italo
--- OUTSIDE RECORDS SUMMARY | 2020-12-21 13:29 | XMS_ITS ---
:1955 Author Organization [facility] Address [address] [place] [id number] [place] [id number] Care Team Providers Name Role Phone MD Derick Unavailable Unavailable Jefry De La Torre MD Primary Care Provider DO Jon Unavailable Reason for Referral (Routine) Status Reason Specialty Diagnoses / Referred By Contact Refe rred To Contact Procedures Canceled Procedures Jc 3 Med/Surg PT eval and treat [place], [place] [address] Electronically signed by Nicolas Castanon MD at Reason for Visit Auth/Cert Status Reason Specialty Diagnoses / Procedures Referred By C juan francisco Referred To Contact Diagnoses FORAMINAL STENOSIS LUMBAR REGION M48.061 Procedures L3-L4 OBLIQUE LUMBAR INTERBODY FUSION WITH ALLOGRAFT, INTERNAL FIXATION WITH ANTERIOR PLATE, L3, L4 RIGHT PEDICLE SCREW FIXATION, BONE MORPHOGENIC PROTEIN, STEALTH Encounter Details Date Type Department Care Team Description 09/24/2020 - Hospital Encounter [facility] Mariluz Castanon, 09/28/2020 Med/Surg 3rd Floor ONE [address]
== END 2020-10-04 10:00 | disposition home or self-care (01) | DRG 561 ==
PROVIDERS: Admitting Provider Physical Medicine & Rehabilitation; PCP Emergency Medicine; Visit Provider Physical Medicine & Rehabilitation
DX: Z47.89 Encounter for other orthopedic aftercare (principal); M51.16 Intervertebral disc disorders with radiculopathy, lumbar region; M48.061 Spinal stenosis, lumbar region without neurogenic claudication; Z98.1 Arthrodesis status; M19.90 Unspecified osteoarthritis, unspecified site; E66.9 Obesity, unspecified; Z68.33 Body mass index [BMI] 33.0-33.9, adult; G25.81 Restless legs syndrome; G47.33 Obstructive sleep apnea (adult) (pediatric); G56.00 Carpal tunnel syndrome, unspecified upper limb; E78.5 Hyperlipidemia, unspecified; K76.0 Fatty (change of) liver, not elsewhere classified; K21.9 Gastro-esophageal reflux disease without esophagitis; G62.9 Polyneuropathy, unspecified; D50.9 Iron deficiency anemia, unspecified; M25.561 Pain in right knee; M25.562 Pain in left knee; I10 Essential (primary) hypertension; E53.8 Deficiency of other specified B group vitamins; R16.1 Splenomegaly, not elsewhere classified; I49.3 Ventricular premature depolarization; Z87.19 Personal history of other diseases of the digestive system; Z91.81 History of falling
CPT/HCPCS: 36415; 80053; 85025; 97110; 97116; 97161; 97165; 97530; 97535; A9270; J1650

== ENCOUNTER 2021-01-31 06:00 | Inpatient (IN) | payer MEDICARE, SELFPAY ==
[2021-01-31] VITALS (9 sets, daily range): BP systolic 117–143; BP diastolic 62–97; PULSE 58–88; RESP 16–27; TEMP 36–36.8; O2SAT 93–99; BMI 34.6
--- NOTE | 2021-01-31 | ECHO_ITS ---
Patient Info Name: Ross Guadarrama Age: 65 years : 1955 Gender: Male Ht: 71 in Wt: 248 lbs BSA: 2.41 m2 HR: 56 bpm BP: 143 / 97 mmHg Heart Rhythm: Sinus Rhythm Exam Date: 01/31/2021 11:29 AM Exam Location: [facility] Patient Status: Inpatient Admit Date: 01/31/2021 Staff Ordering Physician: Marquis Ayon MD Egg Separator: Marvin Low RDCS, RT Attending Provider: Soraya Mancilla MD Exam Type: CA echo doppler color flow Study Info Indications I50.9 - Heart failure, unspecified Complete two-dimensional, color flow and Doppler transthoracic echocardiogram is performed. Strain analysis performed. Summary 1. Complete two-dimensional, color flow and Doppler transthoracic echocardiogram is performed. 2. Left ventricular chamber dimension is normal. 3. Left ventricular systolic function is normal, estimated at 55-60%. 4. There is mildly increased left ventricular wall thickness. 5. The left ventricular diastolic function is normal. 6. Global longitudinal strain is abnormal at -15 %. 7. Left atrial chamber dimension is mildly enlarged. 8. Strain analysis performed. 9. There is mild mitral valve regurgitation. 10. There is mild to moderate tricuspid valve regurgitation. 11. Mild pulmonary hypertension, estimated pulmonary arterial systolic pressure is 40 mmHg. 12. There is mild pulmonic regurgitation. Left Ventricle Left ventricular chamber dimension is normal. Left ventricular systolic function is normal, estimated at 55-60%. There is mildly increased left ventricular wall thickness. The left ventricular diastolic function is normal. Global longitudinal strain is abnormal at -15 %. Right Ventricle Right ventricular chamber dimension is normal. Right ventricular systolic function is normal. Left Atria Left atrial chamber dimension is mildly enlarged. Right Atria Right atrial chamber dimension is normal. Atrial Septum Intact interatrial septum visualized by color flow imaging. Aortic Valve The aortic valve is trileaflet. There is mild aortic valve sclerosis. There is no aortic valve stenosis. There is trace aortic valve regurgitation. Pulmonic Valve The pulmonic valve is normal. There is no pulmonic valve stenosis. There is mild pulmonic regurgitation. Mitral Valve The mitral valve has normal leaflets. There is no mitral valve stenosis. There is mild mitral valve regurgitation. Tricuspid Valve The tricuspid valve leaflets are normal. There is no significant tricuspid valve stenosis. There is mild to moderate tricuspid valve regurgitation. Mild pulmonary hypertension, estimated pulmonary arterial systolic pressure is 40 mmHg. Pericardium/Pleural The pericardium appears normal. There is no pericardial effusion. Inferior Vena Cava Dilated inferior vena cava with <50% collapse upon inspiration consistent with elevated right atrial pressure, 15 mmHg. Aorta The aortic root size at the sinus of Valsalva is normal. Left Ventricular Outflow Tract Name Value Normal LVOT 2D LVOT Diameter 2.0 cm LVOT Doppler LVOT Peak Gradient 4 mmH
--- NOTE | ~2021-01-31 | XR_ITS ---
EXAMINATION: XR chest 1V portable EXAM DATE: 02/06/2021 05:55 INDICATION: SOB pneumonia CT shows no pulmonary edema . TECHNIQUE: Portable AP frontal chest x-ray was obtained. Comparison is made to prior examination from 01/31/2021. FINDINGS: There is mild cardiomegaly. No confluent consolidation, pneumothorax or pleural effusion martin spected. Left upper lobe calcified granuloma. There are mild bony degenerative changes. IMPRESSION: Segmental right upper lobe airspace disease seen on CT not well demonstrated on this port able chest x-ray, may indicate some interval improvement. Reviewed, dictated and finalized at location A. ING SPECIALIST IMPRESSION: Segmental right upper lobe airspace disease seen on CT not well dem onstrated on this portable chest x-ray, may indicate some interval improvement.
--- NOTE | ~2021-01-31 | CT_ITS ---
EXAMINATION: CTA chest PE protocol EXAM DATE: 02/03/2021 11:26 INDICATION: Pleuritic chest pain. TECHNIQUE: Spiral CTA of the chest (pulmonary arteries) was performed with 100 cc Omnipaque 350 intr avenous contrast injection. Images were acquired during the pulmonary arterial phase. Coronal maxi mum intensity projection 3D-reconstructions were created by the technologist on dedicated workstation . Axial, coronal and sagittal reformatted images were reviewed. The dose-length product (DLP) for t his examination was 707.72 mGy-cm. The exposure was tailored according to patient size (auto mA exp osure control), and iterative reconstruction (ASIR) was used as additional dose reduction technique. There is no prior study for comparison. FINDINGS: Pulmonary arteries are well opacified and without intraluminal filling defects. No thora cic aortic dissection. There are small bilateral pleural effusions. There is bibasilar dependent sub segmental atelectasis. There is right upper lobe posterior segmental consolidation appearance most co nsistent with pneumonia. Underlying cancer not excludable. There is left upper lobe granuloma. Trache obronchial tree is patent. There is no mediastinal, hilar or axillary lymphadenopathy. There is n o pneumothorax. Heart normal in size. No evidence of coronary arterial calcification. There are cholecystectomy clips. There is thoracic spondylosis without osteoblastic or osteolytic lesions iden tified. IMPRESSION: 1. Right upper lobe posterior segmental consolidation probably bacterial pneumonia. Other infectious etiology or underlying cancer not excludable. Clinical correlation, consider treating and obtaining 1-3 month follow-up chest CT. 2. Small pleural effusions with adjacent subsegmental atelectasis. 3. No pulmonary emboli. Reviewed, dictated and finalized at location B. UNT REPRESENTATIVE IMPRESSION: 1. Right upper lobe posterior segmental consolidation probably bacterial pneum onia. Other infectious etiology or underlying cancer not excludable. Clinical c orrelation, consider treating and obtaining 1-3 month follow-up chest CT. 2. Small pleural effusions with adjacent subsegmental atelectasis. 3. No pulmonary emboli.
--- NOTE | ~2021-01-31 | XR_ITS ---
EXAMINATION: XR chest 1V portable DATE: 01/31/2021 08:54 INDICATION: Pneumonia. TECHNIQUE: A single frontal view of the chest was obtained. COMPARISON: None. FINDINGS: There are patchy airspace opacities in the mid and lower lung zones with a perihilar predom inance. No pleural effusion or pneumothorax. The heart size is normal. IMPRESSION: 1. Patchy airspace opacities in the mid and lower lung zones with a perihilar predominance, consisten t with pulmonary edema versus pneumonia. Reviewed, dictated and finalized at location A. GENETIC TECHNOLOGIST IMPRESSION: 1. Patchy airspace opacities in the mid and lower lung zones with a perihilar p redominance, consistent with pulmonary edema versus pneumonia.
--- NOTE | 2021-01-31 06:30 | PC.NURSE ---
This patient, Ross Gaudarrama, was admitted to Intensive Care Unit-6 at 0550. Patient/family oriented to hospital policies and general routines including ID bracelet, bed and alarms, visiting hours, pain management, procedures, bathroom and other care routines, personal items, smoking policy, room service/diet, and visiting hours. Information on how to activate the Rapid Response Team has been discussed. Patient/Family are encouraged to report perceived risks to care and to ask questions if they do not understand what they are told or what they should do.
[2021-01-31 07:30] LABS: Lactic Acid Reflex 1.2 mmol/L (0.7-2.1)
[2021-01-31 07:31] LABS: Alanine Aminotransferase 20 U/L (4-50); Albumin Level 3.6 g/dL (3.5-5.1); Alkaline Phosphatase 61 U/L (38-126); Anion Gap 9 mmol/L (8-16); Aspartate Amino Transferase 27 U/L (17-59); Bilirubin,Total 1.3 mg/dL (0.2-1.3); Blood Urea Nitrogen 20 mg/dL (9-20); Calcium 8.3 mg/dL (8.4-10.2); Carbon Dioxide 24 mmol/L (22-30); Chloride 106 mmol/L (98-107); Estimated CRCL calculation 75 ml/min; Estimated Glomerular Filt Rate > 60; Glucose 99 mg/dL (65-110); Hematocrit 39.7 % (42.0-52.0); Hemoglobin 13.2 g/dL (14.0-18.0); Mean Corpuscular HGB Conc 33.2 g/dl (32-36); Mean Corpuscular Hemoglobin 31.9 pg (26-34); Mean Corpuscular Volume 95.9 fl (80-100); Mean Platelet Volume 10.3 fl (7.4-10.4); Platelet Count Result 177 k/mm3 (150-375); Potassium 4.1 mmol/L (3.4-5.0); Red Blood Count 4.14 M/mm3 (4.6-6.20); Sodium 139 mmol/L (137-145); White Blood Count 24.3 K/mm3 (4.5-10.0)
[2021-01-31 07:40] LABS: NT Pro B Type Natriuretic Pept 979 pg/mL (5-100)
[2021-01-31 07:54] LABS: INR 1.4; Prothrombin Time 17.2 Seconds (11.1-14.7)
[2021-01-31 07:55] LABS: Partial Thromboplastin Time 39.9 SECONDS (22.3-36.8)
--- NOTE | 2021-01-31 08:40 | WPDCNINT ---
Assessment and Plan Assessment and plan (1) Sepsis: Code(s): A41.9 - Sepsis, unspecified organism Status: Acute Assessment and Plan: Patient presented with picture of sepsis secondary to community-acquired pneumonia at the outside hospital ER. He had elevated white cell count and was hypertensive. Pressure improved after receiving IV fluid bolus Hold further IV fluids as patient has elevated BNP Cultures have been sent UA has been ordered Patient was started on empiric vancomycin and Zosyn by admitting physician to be continued until cultures also back Repeat lactic acid level at this hospital was normal Monitor blood pressure (2) Community acquired pneumonia: Code(s): J18.9 - Pneumonia, unspecified organism Status: Acute Assessment and Plan: As of mentioned blood culture sent at outside hospital ER Will check sputum culture Check urine Legionella and strep antigen Patient is currently on vancomycin Zosyn (3) Elevated brain natriuretic peptide (BNP) level: Code(s): R79.89 - Other specified abnormal findings of blood chemistry Status: Acute Assessment and Plan: Check echocardiogram Hold further IV fluids as patient's lactate is normal in his blood pressure has normalized (4) Pleuritic chest pain: Code(s): R07.81 - Pleurodynia Status: Acute Assessment and Plan: Will place Lidoderm patch at the most affected site P.r.n. NSAIDs and Boaz (5) Obstructive sleep apnea: Code(s): G47.33 - Obstructive sleep apnea (adult) (pediatric) Status: Chronic Assessment and Plan: BiPAP at night Additional Plan DVT prophylaxis -Lovenox Stress ulcer prophylaxis -PPI Slash Trimmer Consult Note Consult date: 01/31/21 HPI: Ross Guadarrama is a 65 year old male with past medical history of ulcerative colitis, chronic osteoarthritis and back pain and peripheral neuropathy, SANJAY compliant with CPAP, restless leg syndrome was transferred from outside hospital. Presented there with chief complaint of fevers and chills since yesterday morning. Cough and right-sided chest pain the which was associated with breathing and coughing. In ER patient was hypotensive and was given IV fluid bolus and IV antibiotics. Cultures were sent EKG report from outside hospital shows sinus rhythm and nonspecific T-wave abnormality. WBC 22.4 platelet 175 COVID antigen negative troponin negative creatinine 1.51 lactic acid 1.3. Chest x-ray showed new round opacity in right suprahilar region consistent with focal pneumonia Patient was transferred to [facility] ICU due to lack of beds at the outside hospital. This morning patient told me that yesterday morning when he woke up he was having chills and fever which continued through the day. Around 4:00 p.m. he started having cough which was administered with pain. Pain is throughout anterior chest was mostly in the right side. Pain is 10/10 severe when coughing but mild when he takes deep breath. Pain is sharp does not radiate anywhere else. Patient felt better after receiving Toradol in the ED. patient states that she has sick contact in the form of grandchildren who had viral infection. He also complains of shortness of breath. Denies any other complaints All other systems were reviewed and were negative Review of Systems Review of Systems: All systems reviewed & are unremarkable except as noted in HPI and below (HPI) [facility] Past Medical History Medical History Bilateral knee pain Cholecystectomy planned Chronic lumbar radiculopathy Fatty liver GERD (gastroesophageal reflux disease) Hyperlipidemia Hypertension Insomnia Iron deficiency anemia Obstructive sleep apnea Osteoarthritis Peripheral sensory neuropathy Restless leg syndrome Splenomegaly Ulcerative colitis Ventricular premature contractions Vitamin B12 deficiency Vitamin D deficiency Surgical History
--- NOTE | 2021-01-31 09:13 | PM.IMHP ---
H&P: HPI History of Present Illness Date/Time: 01/31/21 08:13 Transferred for hypotension. HPI Ross Guadarrama is a 65 year old gentleman with past medical history including but not limited to ulcerative colitis, chronic osteoarthritis and back pain and peripheral neuropathy, SANJAY compliant with CPAP, restless leg syndrome was transferred from outside hospital. The patient had been in his usual state of health until yesterday morning. Yesterday morning, at 1st, he noticed some chills. His started the heater and applied a blanket. Later night around 8:00 p.m. interval of lightheaded chest pain constant pressure-like, associated with cough and difficulty breathing. That is when he decided to go to the emergency department. In ER patient was found to be hypotensive and was given 3 L IV fluid bolus and IV antibiotics. Cultures were sent EKG report from outside hospital shows sinus rhythm and nonspecific T-wave abnormality.WBC 22.4 platelet 175 COVID antigen negative troponin negative creatinine 1.51 lactic acid 1.3. Chest x-ray showed new round opacity in right suprahilar region consistent with focal pneumonia. Patient was transferred to our intensive care unit. Patient meets criteria and will be admitted for at least 2 midnights as an inpatient. At the time of my evaluation the patient is fully awake and alert. He complains of right-sided chest pain, improved. He still feel cold and some chills. Chief Complaint: Chest pain. Productive cough. Hypotension. Review of Systems Constitutional: Constitutional: Reports as per HPI, Reports chills, Reports fatigue and Reports weakness Eyes: Eyes: Reports as per HPI, Reports no additional eye complaints and Denies blurry vision ENT: Reports system reviewed and no additional complaints, except as documented, Reports as per HPI and Denies epistaxis Cardiovascular: Cardiovascular: Reports as per HPI, Reports chest pain, Denies pedal edema, Denies leg edema and Denies lightheadedness Respiratory: Respiratory: Reports as per HPI, Reports cough, Denies dyspnea, Denies dyspnea on exertion and Denies wheezing Gastrointestinal: Gastrointestinal: Reports as per HPI, Denies abdominal pain, Denies diarrhea, Denies nausea and Denies vomiting Genitourinary: Genitourinary: Reports as per HPI Musculoskeletal: Musculoskeletal: Reports as per HPI Integumentary/Breasts: Skin/Breast: Reports as per HPI Neurologic: Reports as per HPI Psychiatric: Psychiatric: Reports as per HPI [facility] Past Medical History Medical History Bilateral knee pain Cholecystectomy planned Chronic lumbar radiculopathy Fatty liver GERD (gastroesophageal reflux disease) Hyperlipidemia Hypertension Insomnia Iron deficiency anemia Obstructive sleep apnea Osteoarthritis Peripheral sensory neuropathy Restless leg syndrome Splenomegaly Ulcerative colitis Ventricular premature contractions Vitamin B12 deficiency Vitamin D deficiency Surgical History Surgical History H/O arthroscopic knee surgery multiple to R knee H/O colectomy In 2013 at [place] due to ulcerative colitis. H/O hernia repair Hx of cholecystectomy S/P lumbar spinal fusion By Dr Castanon at [facility] 09/24/20 L3-4 OLIF, internal fixation with anterior lumbar plate, and L3 -L4 posterior spinal fusion Family History Family History Father Family history of coronary artery disease Diabetes mellitus Acute myocardial infarction Cerebrovascular accident Grandparent Acute myocardial infarction Cerebrovascular accident Grandparent Acute myocardial infarction Cerebrovascular accident Other Family history of arthritis Social History Social History Social History: Mr. Guadarrama lives at home in [place] with his , Dorie. He retired in 2019 from [employer]?
[2021-01-31 09:30] LABS: Band Neutrophils Percent 12 % (0-6); Eosinophils Absolute Manual 0.24 K/mm3 (0.02-0.5); Eosinophils Percent Manual 1 % (0-4); Lymphocytes Absolute Manual 3.15 K/mm3 (1.1-4.5); Monocytes Absolute Manual 2.91 K/mm3 (0.1-0.90); Monocytes Percent Manual 12 % (3-9); Neutrophils Absolute Manual 17.98 K/mm3 (1.3-6.7); Neutrophils Percent Manual 62 % (46-73); Platelet Estimate Adequate (Adequate); Total Cells Counted 100
[2021-01-31] MEDS: LIDOCAINE 5% PATCH 1 PATCH TRANSDERM (10:20)
[2021-01-31] MEDS: ENOXAPARIN 40 MG/0.4 ML SYRINGE SUB-Q (10:20)
[2021-01-31] MEDS: PANTOPRAZOLE SODIUM IV 40 MG VIAL IV PUSH (10:20)
[2021-01-31 15:43] LABS: Troponin I < 0.012 ng/mL (0.000-0.034)
[2021-01-31] MEDS: IBUPROFEN 400 MG TABLET PO (16:17)
[2021-01-31 20:36] LABS: Troponin I < 0.012 ng/mL (0.000-0.034)
[2021-01-31] MEDS: ACETAMINOPHEN 325 MG TABLET 650 MG PO (21:45)
[2021-01-31] MEDS: traMADol HCL (*CRX) 50 MG TABLET PO (21:45)
[2021-01-31] MEDS: GABAPENTIN 300 MG CAPSULE 600 MG PO (22:46)
[2021-01-31] MEDS: clonazePAM (*CRX) 0.5 MG TABLET 1 MG PO (22:46)
--- NOTE | 2021-01-31 23:05 | PC.NURSE ---
This patient, Ross Guadarrama, was transferred to [[id number] ] on 01/31/21 at 2305. Personal belongings sent with patient. Report given to [Peri AMADOR]. Appropriate documentation sent with patient.
[2021-02-01] VITALS (8 sets, daily range): BP systolic 130–154; BP diastolic 72–77; PULSE 51–70; RESP 14–18; TEMP 36.3–37.2; O2SAT 95–97
[2021-02-01] MEDS: traMADol HCL (*CRX) 50 MG TABLET PO (05:29)
[2021-02-01 05:58] LABS: Hematocrit 36.3 % (42.0-52.0); Hemoglobin 12.3 g/dL (14.0-18.0); Mean Corpuscular HGB Conc 33.9 g/dl (32-36); Mean Corpuscular Hemoglobin 31.5 pg (26-34); Mean Corpuscular Volume 93.1 fl (80-100); Mean Platelet Volume 10.5 fl (7.4-10.4); Platelet Count Result 159 k/mm3 (150-375); Red Cell Distribution Width 12.9 % (11.5-14.5); White Blood Count 13.1 K/mm3 (4.5-10.0)
[2021-02-01 06:09] LABS: Alanine Aminotransferase 16 U/L (4-50); Albumin Level 3.2 g/dL (3.5-5.1); Alkaline Phosphatase 57 U/L (38-126); Anion Gap 5 mmol/L (8-16); Aspartate Amino Transferase 22 U/L (17-59); Bilirubin,Total 0.6 mg/dL (0.2-1.3); Blood Urea Nitrogen 18 mg/dL (9-20); Calcium 8.8 mg/dL (8.4-10.2); Carbon Dioxide 27 mmol/L (22-30); Chloride 109 mmol/L (98-107); Estimated CRCL calculation 62 ml/min; Estimated Glomerular Filt Rate > 60; Glucose 117 mg/dL (65-110); Magnesium 1.9 mg/dL (1.6-2.3); Potassium 3.8 mmol/L (3.4-5.0); Sodium 141 mmol/L (137-145)
[2021-02-01 06:21] LABS: Troponin I < 0.012 ng/mL (0.000-0.034)
[2021-02-01] MEDS: ENOXAPARIN 40 MG/0.4 ML SYRINGE SUB-Q (08:17)
[2021-02-01] MEDS: GABAPENTIN 300 MG CAPSULE 600 MG PO ×3 (08:17→16:41)
[2021-02-01] MEDS: PANTOPRAZOLE SODIUM IV 40 MG VIAL IV PUSH (08:17)
[2021-02-01] MEDS: LIDOCAINE 5% PATCH 1 PATCH TRANSDERM (08:18)
[2021-02-01] MEDS: HYDROcodone/acetaminophen (*CRX) 5-325 MG TABLET 1 TAB PO (13:32)
--- NOTE | 2021-02-01 14:32 | PM.IMPN ---
Progress Note: A&P Assessment and Plan (1) Sepsis: Code(s): A41.9 - Sepsis, unspecified organism Status: Acute Assessment and Plan: Acute sepsis secondary to community-acquired pneumonia, improving. Patient originally presented with hypotension and productive cough suggesting community-acquired pneumonia. At presentation he had elevated white cell count and was hypotensive. He was aggressively resuscitated with 3 L IV fluids with improvement of the blood pressure. Patient here has elevated BNP in fluids were put on hold. Cultures have been sent and remained negative at the time of this dictation. Patient was started on empirical vancomycin and Zosyn by admitting physician. We will monitor the cultures and deescalate as needed. (2) Community acquired pneumonia: Code(s): J18.9 - Pneumonia, unspecified organism Status: Acute Assessment and Plan: Patient presented with productive cough. Follow blood culture, sputum cultures. Urine Legionella strep antigen RS sent and pending at the time of this dictation. Continue broad-spectrum IV antibiotics with vancomycin and Zosyn. (3) Elevated brain natriuretic peptide (BNP) level: Code(s): R79.89 - Other specified abnormal findings of blood chemistry Status: Acute Assessment and Plan: Currently by patient is breathing on room air and tolerating a decubitus position. There is no evidence of gross fluid overload. Chest x-ray with patchy paced opacities in the mid and lower lung zones with a perihilar predominance, suggestive of pulmonary edema versus pneumonia.. (4) Pleuritic chest pain: Code(s): R07.81 - Pleurodynia Status: Acute Assessment and Plan: Pain management with lidocaine patch, NSAID and [place]. Patient improving symptomatic coli with pain management. (5) Obstructive sleep apnea: Code(s): G47.33 - Obstructive sleep apnea (adult) (pediatric) Status: Chronic Assessment and Plan: BiPAP per home parameters. Additional Plan DVT prophylaxis -Lovenox Stress ulcer prophylaxis -PPI Subjective Date/time seen: 02/01/21 10:32 S: The patient was examined at the bedside. He is looking a lot better today. His chest pain has almost resolved and the cough is improving as well. He denied any additional complaints. Review of Systems Review of Systems: All systems reviewed & are unremarkable except as noted in HPI and below (HPI) Constitutional: Constitutional: Reports as per HPI, Reports chills, Reports fatigue and Reports weakness Eyes: Eyes: Reports as per HPI, Reports no additional eye complaints and Denies blurry vision ENT: Reports system reviewed and no additional complaints, except as documented, Reports as per HPI and Denies epistaxis Cardiovascular: Cardiovascular: Reports as per HPI, Reports chest pain, Denies pedal edema, Denies leg edema, Denies lightheadedness, Denies dyspnea and Denies dyspnea on exertion Respiratory: Respiratory: Reports as per HPI, Reports cough, Denies dyspnea, Denies dyspnea on exertion and Denies wheezing Gastrointestinal: Gastrointestinal: Reports as per HPI, Denies abdominal pain, Denies diarrhea, Denies nausea and Denies vomiting Genitourinary: Genitourinary: Reports as per HPI Musculoskeletal: Musculoskeletal: Reports as per HPI Integumentary/Breasts: Skin/Breast: Reports as per HPI Neurologic: Reports as per HPI and Reports weakness Psychiatric: Psychiatric: Reports as per HPI Endocrine: Endocrine: Reports fatigue Allergic/Immunologic: Allergic/Immunologic: Denies wheezing Exam Narrative: General: Pt is alert awake and in NAD. Temperature 98.2? F, pulse rate 51-68, respiratory rate 14, pulse ox 97, blood pressure 120/73. Lungs/Chest: Trachea central Clear BS B/L, No crackles or wheezing. Patient is tender in right side of anterior chest Cardiac: RRR. Normal S1 S2. No murmurs Circulation: Pedal pulses are intact and symmetrical. Abdomen:
[2021-02-01] MEDS: IBUPROFEN 400 MG TABLET PO (20:19)
[2021-02-01] MEDS: clonazePAM (*CRX) 0.5 MG TABLET 1 MG PO (22:03)
[2021-02-02] VITALS (13 sets, daily range): BP systolic 129–160; BP diastolic 76–80; PULSE 48–79; RESP 16–24; TEMP 36.3–36.6; O2SAT 94–98
[2021-02-02 08:07] LABS: Hemoglobin 13.8 g/dL (14.0-18.0); Mean Corpuscular HGB Conc 33.7 g/dl (32-36); Mean Corpuscular Hemoglobin 31.7 pg (26-34); Mean Platelet Volume 10.1 fl (7.4-10.4); Platelet Count Result 207 k/mm3 (150-375); Red Blood Count 4.36 M/mm3 (4.6-6.20); Red Cell Distribution Width 13.1 % (11.5-14.5); White Blood Count 8.6 K/mm3 (4.5-10.0)
[2021-02-02 08:26] LABS: Alanine Aminotransferase 18 U/L (4-50); Alkaline Phosphatase 67 U/L (38-126); Anion Gap 10 mmol/L (8-16); Aspartate Amino Transferase 21 U/L (17-59); Bilirubin,Total 0.3 mg/dL (0.2-1.3); Blood Urea Nitrogen 14 mg/dL (9-20); Calcium 9.3 mg/dL (8.4-10.2); Carbon Dioxide 26 mmol/L (22-30); Chloride 108 mmol/L (98-107); Estimated CRCL calculation 82 ml/min; Estimated Glomerular Filt Rate > 60; Glucose 103 mg/dL (65-110); Magnesium 1.9 mg/dL (1.6-2.3); Potassium 3.7 mmol/L (3.4-5.0); Sodium 144 mmol/L (137-145)
[2021-02-02] MEDS: ENOXAPARIN 40 MG/0.4 ML SYRINGE SUB-Q (08:50)
[2021-02-02] MEDS: LIDOCAINE 5% PATCH 1 PATCH TRANSDERM (08:54)
[2021-02-02 08:56] LABS: Vancomycin Trough 9.4 ug/mL (10.0-20.0)
[2021-02-02] MEDS: traMADol HCL (*CRX) 50 MG TABLET PO ×2 (08:57→20:33)
[2021-02-02] MEDS: GABAPENTIN 300 MG CAPSULE 600 MG PO ×3 (08:59→20:15)
[2021-02-02] MEDS: PANTOPRAZOLE SODIUM IV 40 MG VIAL IV PUSH (09:04)
[2021-02-02] MEDS: MORPHINE SULFATE (*CRX) 2 MG/ML INJ IV PUSH ×2 (13:13→22:04)
[2021-02-02] MEDS: SACCHAROMYCES BOULARDII 250 MG CAPSULE PO ×2 (13:28→20:15)
[2021-02-02] MEDS: DOCOSANOL 10% CREAM 2 GM 1 APPLIC TOPICAL ×3 (13:29→20:39)
--- NOTE | 2021-02-02 13:32 | PM.IMPN ---
Progress Note: A&P Assessment and Plan (1) Sepsis: Code(s): A41.9 - Sepsis, unspecified organism Status: Resolved Assessment and Plan: Acute sepsis secondary to community-acquired pneumonia, resolved after fluid hydration (2) Community acquired pneumonia: Code(s): J18.9 - Pneumonia, unspecified organism Status: Acute Assessment and Plan: Patient presented with productive cough. Follow blood culture, sputum cultures. All cultures are pending. Continue broad-spectrum IV antibiotics with vancomycin and Zosyn. (3) Elevated brain natriuretic peptide (BNP) level: Code(s): R79.89 - Other specified abnormal findings of blood chemistry Status: Acute Assessment and Plan: Chest x-ray with patchy paced opacities in the mid and lower lung zones with a perihilar predominance, suggestive of pulmonary edema versus pneumonia.. (4) Pleuritic chest pain: Code(s): R07.81 - Pleurodynia Status: Acute Assessment and Plan: Pain management with lidocaine patch, NSAID and [place]. pleuritic chest pain (5) Obstructive sleep apnea: Code(s): G47.33 - Obstructive sleep apnea (adult) (pediatric) Status: Chronic Assessment and Plan: BiPAP per home parameters. Subjective Date/time seen: 02/02/21 13:32 Interval history: 65 year old gentleman with past medical history including but not limited to ulcerative colitis, chronic osteoarthritis and back pain and peripheral neuropathy, SANJAY compliant with CPAP, restless leg syndrome was transferred from outside hospital. The patient had been in his usual state of health until yesterday morning. He is admitted with sepsis and CAP. Review of Systems Review of Systems: All systems reviewed & are unremarkable except as noted in HPI and below Exam Narrative: General: Pt is alert awake and in NAD. Lungs/Chest:lungs are clear Patient is tender in right side of anterior chest Cardiac: RRR. Normal S1 S2. No murmurs Circulation: Pedal pulses are intact and symmetrical. Abdomen: Normal bowel sounds. Obese. Soft. NT. ND. Extremities: No clubbing, cyanosis or edema. Warm : Linder in place Neurologic: Follows commands. Moves all 4 extremities PERRL alert oriented x3 Skin: No Rash Objective Data Vital Signs Vital Signs: Vital Signs - 24 hr 02/01/21 14:00 02/01/21 16:00 02/01/21 20:00 Temperature 36.3 C L 37.2 C Pulse Rate 61 65 70 Respiratory Rate 18 18 Blood Pressure 131/72 154/77 H Pulse Oximetry 96 95 02/01/21 22:06 02/02/21 00:00 02/02/21 02:06 Temperature Pulse Rate 63 54 L 68 Respiratory Rate Blood Pressure Pulse Oximetry 96 96 02/02/21 04:00 02/02/21 05:16 02/02/21 07:28 Temperature 36.3 C L 36.6 C Pulse Rate 48 L 54 L 53 L Respiratory Rate 16 24 H Blood Pressure 129/77 142/80 H Pulse Oximetry 97 97 02/02/21 08:00 02/02/21 12:00 Temperature Pulse Rate 58 L 55 L Respiratory Rate Blood Pressure Pulse Oximetry Intake/Output Intake/Output: Intake & Output 01/30/21 01/31/21 02/01/21 02/02/21 23:59 23:59 23:59 23:59 Intake Total 1610 1800 1260 Output Total 1250 300 Balance 360 1500 1260 Meds/Results Medications: Active Medications Generic Name Dose Route Start Last Admin Trade Name Freq PRN Reason Stop Dose Admin Acetaminophen 650 mg 01/31/21 06:12 01/31/21 21:45 Acetaminophen 325 Mg Tablet PO 650 mg Q4H PRN Administration Mild Pain (1-3) or Fever Hydrocodone Bitart/Acetaminophen 1 tab 01/31/21 09:03 02/01/21 13:32 Hydrocodone/Acetaminophen (*Crx) 5-325 Mg Tablet PO 1 tab Q4H PRN Administration Pain Rated 4-6 Al Hydrox/Mg Hydrox/Simethicone 30 ml 01/31/21 06:12 Mag Hydrox/Al Hydrox/Simeth 30 Ml Udc PO QID PRN Dyspepsia Clonazepam 1 mg 01/31/21 22:06 02/01/21 22:03 Clonazepam (*Crx) 0.5 Mg Tablet PO 1 mg HS PRN Administration Anxiety Docosanol 1 applic 02/02/21 15:00 11
--- NOTE | 2021-02-02 15:39 | PC.NURSE ---
Addendum entered by Humera Bradford RN 02/02/21 15:39: On 02/02/21, the student, [BEREKET TUCKER], provided care and completed [employer] documentation on this patient. I have reviewed the student's documentation and agree with the findings. Original Note: On 02/02/21, the student, [], provided care and completed [employer] documentation on this patient. I have reviewed the student's documentation and agree with the findings.
[2021-02-02] MEDS: clonazePAM (*CRX) 0.5 MG TABLET 1 MG PO (20:33)
[2021-02-03] VITALS (9 sets, daily range): BP systolic 126–159; BP diastolic 71–80; PULSE 52–62; RESP 16–18; TEMP 36–36.7; O2SAT 95–98
[2021-02-03 05:38] LABS: Hematocrit 37.1 % (42.0-52.0); Hemoglobin 12.6 g/dL (14.0-18.0); Mean Corpuscular Volume 91.4 fl (80-100); Mean Platelet Volume 9.9 fl (7.4-10.4); Platelet Count Result 215 k/mm3 (150-375); Red Blood Count 4.06 M/mm3 (4.6-6.20); Red Cell Distribution Width 12.4 % (11.5-14.5); White Blood Count 7.7 K/mm3 (4.5-10.0)
[2021-02-03 05:48] LABS: Alanine Aminotransferase 17 U/L (4-50); Albumin Level 3.6 g/dL (3.5-5.1); Alkaline Phosphatase 58 U/L (38-126); Anion Gap 8 mmol/L (8-16); Aspartate Amino Transferase 20 U/L (17-59); Bilirubin,Total 0.4 mg/dL (0.2-1.3); Blood Urea Nitrogen 10 mg/dL (9-20); Calcium 8.7 mg/dL (8.4-10.2); Carbon Dioxide 25 mmol/L (22-30); Chloride 104 mmol/L (98-107); Estimated CRCL calculation 81 ml/min; Estimated Glomerular Filt Rate > 60; Glucose 97 mg/dL (65-110); Magnesium 1.7 mg/dL (1.6-2.3); Potassium 3.6 mmol/L (3.4-5.0); Sodium 137 mmol/L (137-145)
[2021-02-03] MEDS: LIDOCAINE 5% PATCH 1 PATCH TRANSDERM (08:22)
[2021-02-03] MEDS: ENOXAPARIN 40 MG/0.4 ML SYRINGE SUB-Q (08:23)
[2021-02-03] MEDS: SACCHAROMYCES BOULARDII 250 MG CAPSULE PO ×3 (08:23→17:02)
[2021-02-03] MEDS: GABAPENTIN 300 MG CAPSULE 600 MG PO ×3 (08:23→17:02)
[2021-02-03] MEDS: PANTOPRAZOLE SODIUM IV 40 MG VIAL IV PUSH (08:25)
[2021-02-03] MEDS: DOCOSANOL 10% CREAM 2 GM 1 APPLIC TOPICAL ×5 (08:25→20:38)
--- NOTE | 2021-02-03 09:55 | PM.IMPN ---
Progress Note: A&P Assessment and Plan (1) Sepsis: Code(s): A41.9 - Sepsis, unspecified organism Status: Resolved Assessment and Plan: Acute sepsis secondary to community-acquired pneumonia, resolved after fluid hydration (2) Community acquired pneumonia: Code(s): J18.9 - Pneumonia, unspecified organism Status: Acute Assessment and Plan: Patient presented with productive cough. cultures are negative to date. Continue broad-spectrum IV antibiotics with vancomycin and Zosyn.ongoing chest pain i will order CT PE protocol to rule out PE. (3) Elevated brain natriuretic peptide (BNP) level: Code(s): R79.89 - Other specified abnormal findings of blood chemistry Status: Acute Assessment and Plan: Chest x-ray with patchy paced opacities in the mid and lower lung zones with a perihilar predominance, suggestive of pulmonary edema versus pneumonia (4) Pleuritic chest pain: Code(s): R07.81 - Pleurodynia Status: Acute Assessment and Plan: Pain management with lidocaine patch, NSAID and [place]. pleuritic chest pain. (5) Obstructive sleep apnea: Code(s): G47.33 - Obstructive sleep apnea (adult) (pediatric) Status: Chronic Assessment and Plan: BiPAP per home parameters. Additional Plan DVT prophylaxis -Lovenox Subjective Date/time seen: 02/03/21 09:55 Interval history: 65 year old gentleman with past medical history including but not limited to ulcerative colitis, chronic osteoarthritis and back pain and peripheral neuropathy, SANJAY compliant with CPAP, restless leg syndrome was transferred from outside hospital. He is admitted with sepsis and CAP. Pt having ongoing R sided chest pains. Review of Systems Review of Systems: All systems reviewed & are unremarkable except as noted in HPI and below Exam Narrative: General: Pt is alert awake and in NAD. Lungs/Chest:lungs are clear Patient is tender in right side of anterior chest Cardiac: RRR. Normal S1 S2. No murmurs Circulation: Pedal pulses are intact and symmetrical. Abdomen: Normal bowel sounds. Obese. Soft. NT. ND. Extremities: No clubbing, cyanosis or edema. Warm : Linder in place Neurologic: Follows commands. Moves all 4 extremities PERRL alert oriented x3 Skin: No Rash Objective Data Vital Signs Vital Signs: Vital Signs - 24 hr 02/02/21 12:00 02/02/21 13:40 02/02/21 19:37 Temperature 36.4 C L 36.3 C L Pulse Rate 55 L 53 L 59 L Respiratory Rate 22 H 16 Blood Pressure 160/76 H 151/80 H Pulse Oximetry 97 98 02/02/21 20:00 02/02/21 20:16 02/02/21 20:32 Temperature Pulse Rate 79 68 63 Respiratory Rate 18 18 Blood Pressure Pulse Oximetry 94 94 96 02/02/21 23:33 02/03/21 00:00 02/03/21 03:57 Temperature 36.0 C L Pulse Rate 61 57 L 52 L Respiratory Rate 16 Blood Pressure 126/80 Pulse Oximetry 95 97 02/03/21 04:00 Temperature Pulse Rate 52 L Respiratory Rate Blood Pressure Pulse Oximetry Intake/Output Intake/Output: Intake & Output 01/31/21 02/01/21 02/02/21 02/03/21 23:59 23:59 23:59 23:59 Intake Total 1610 1800 1360 1240 Output Total 1250 300 Balance 360 1500 1360 1240 Meds/Results Medications: Active Medications Generic Name Dose Route Start Last Admin Trade Name Freq PRN Reason Stop Dose Admin Acetaminophen 650 mg 01/31/21 06:12 01/31/21 21:45 Acetaminophen 325 Mg Tablet PO 650 mg Q4H PRN Administration Mild Pain (1-3) or Fever Hydrocodone Bitart/Acetaminophen 1 tab 01/31/21 09:03 02/01/21 13:32 Hydrocodone/Acetaminophen (*Crx) 5-325 Mg Tablet PO 1 tab Q4H PRN Administration Pain Rated 4-6 Al Hydrox/Mg Hydrox/Simethicone 30 ml 01/31/21 06:12 Mag Hydrox/Al Hydrox/Simeth 30 Ml Udc PO QID PRN Dyspepsia Clonazepam 1 mg 01/31/21 22:06 02/02/21 20:33 Clonazepam (*Crx) 0.5 Mg Tablet PO 1 mg HS PRN Administration Anxiety Docosanol 1 applic
[2021-02-03] MEDS: ASPIRIN 81 MG ENTERIC TABLET PO (12:01)
[2021-02-03] MEDS: THIAMINE HCL 100 MG TABLET 200 MG PO (12:01)
[2021-02-03] MEDS: CYANOCOBALAMIN 1,000 MCG TABLET 1000 MCG PO (12:01)
[2021-02-03] MEDS: CHOLECALCIFEROL 1,000 UNITS TABLET 5000 UNITS PO (12:01)
[2021-02-03] MEDS: TAMSULOSIN HCL 0.4 MG CAPSULE PO (12:02)
[2021-02-03] MEDS: THIAMINE HCL 50 MG TABLET PO (12:02)
[2021-02-03 16:47] LABS: Pneumococcal Antigen Urine Not Detected (Not Detected)
[2021-02-03] MEDS: clonazePAM (*CRX) 0.5 MG TABLET 1 MG PO (20:37)
[2021-02-03 20:56] LABS: Vancomycin Trough 14.8 ug/mL (10.0-20.0)
[2021-02-03] MEDS: MORPHINE SULFATE (*CRX) 2 MG/ML INJ IV PUSH (22:45)
[2021-02-04] MEDS: traMADol HCL (*CRX) 50 MG TABLET PO ×3 (00:40→20:55)
[2021-02-04 03:25] VITALS: PULSE 61; O2SAT 97
[2021-02-04 04:17] LABS: Legionella pneumophila Ag Ur Not Detected (Not Detected)
[2021-02-04 05:12] LABS: Hematocrit 38.4 % (42.0-52.0); Hemoglobin 13.4 g/dL (14.0-18.0); Mean Corpuscular HGB Conc 34.9 g/dl (32-36); Mean Corpuscular Hemoglobin 32.2 pg (26-34); Mean Corpuscular Volume 92.3 fl (80-100); Mean Platelet Volume 9.9 fl (7.4-10.4); Platelet Count Result 213 k/mm3 (150-375); Red Blood Count 4.16 M/mm3 (4.6-6.20); Red Cell Distribution Width 12.5 % (11.5-14.5); White Blood Count 9.1 K/mm3 (4.5-10.0)
[2021-02-04 05:35] LABS: Alanine Aminotransferase 20 U/L (4-50); Albumin Level 3.7 g/dL (3.5-5.1); Alkaline Phosphatase 64 U/L (38-126); Anion Gap 8 mmol/L (8-16); Aspartate Amino Transferase 28 U/L (17-59); Bilirubin,Total 0.3 mg/dL (0.2-1.3); Blood Urea Nitrogen 10 mg/dL (9-20); Calcium 9.1 mg/dL (8.4-10.2); Carbon Dioxide 27 mmol/L (22-30); Chloride 104 mmol/L (98-107); Estimated CRCL calculation 81 ml/min; Estimated Glomerular Filt Rate > 60; Glucose 121 mg/dL (65-110); Magnesium 1.9 mg/dL (1.6-2.3); Potassium 3.2 mmol/L (3.4-5.0); Sodium 139 mmol/L (137-145)
[2021-02-04 05:41] VITALS: BP 119/81; PULSE 58; RESP 20; TEMP 36.9; O2SAT 97
[2021-02-04] MEDS: MAGNESIUM OXIDE 200 MG TABLET PO (08:39)
[2021-02-04] MEDS: CYANOCOBALAMIN 1,000 MCG TABLET 1000 MCG PO (08:40)
[2021-02-04] MEDS: CHOLECALCIFEROL 1,000 UNITS TABLET 5000 UNITS PO (08:40)
[2021-02-04] MEDS: LIDOCAINE 5% PATCH 1 PATCH TRANSDERM (08:40)
[2021-02-04] MEDS: ENOXAPARIN 40 MG/0.4 ML SYRINGE SUB-Q (08:40)
[2021-02-04] MEDS: SACCHAROMYCES BOULARDII 250 MG CAPSULE PO ×3 (08:40→16:14)
[2021-02-04] MEDS: THIAMINE HCL 50 MG TABLET PO (08:41)
[2021-02-04] MEDS: GABAPENTIN 300 MG CAPSULE 600 MG PO ×3 (08:41→16:14)
[2021-02-04] MEDS: MULTIVITAMINS THERAPEUTIC TAB (*BKC) 1 TABLET PO (08:41)
[2021-02-04] MEDS: MELOXICAM 7.5 MG TABLET 15 MG PO (08:41)
[2021-02-04] MEDS: PANTOPRAZOLE 40 MG TABLET PO (08:41)
[2021-02-04] MEDS: THIAMINE HCL 100 MG TABLET 200 MG PO (08:41)
[2021-02-04] MEDS: FERROUS SULFATE 324 MG TABLET PO (08:41)
[2021-02-04] MEDS: TAMSULOSIN HCL 0.4 MG CAPSULE PO (08:41)
[2021-02-04] MEDS: DOCOSANOL 10% CREAM 2 GM 1 APPLIC TOPICAL ×5 (08:42→20:48)
[2021-02-04] MEDS: ASPIRIN 81 MG ENTERIC TABLET PO (08:42)
--- NOTE | 2021-02-04 10:34 | PM.IMPN ---
Progress Note: A&P Assessment and Plan (1) Sepsis: Code(s): A41.9 - Sepsis, unspecified organism Status: Resolved Assessment and Plan: Acute sepsis secondary to community-acquired pneumonia, resolved after fluid hydration (2) Community acquired pneumonia: Code(s): J18.9 - Pneumonia, unspecified organism Status: Acute Assessment and Plan: Patient presented with productive cough. cultures are negative to date. Continue broad-spectrum IV antibiotics with vancomycin and Zosyn.Pt had ct chest showing pneumonia no PE. continue current care (3) Elevated brain natriuretic peptide (BNP) level: Code(s): R79.89 - Other specified abnormal findings of blood chemistry Status: Acute Assessment and Plan: Chest x-ray with patchy paced opacities in the mid and lower lung zones with a perihilar predominance, suggestive of pulmonary edema versus pneumonia (4) Pleuritic chest pain: Code(s): R07.81 - Pleurodynia Status: Acute Assessment and Plan: Pain management with lidocaine patch, NSAID and [place]. pleuritic chest pain. (5) Obstructive sleep apnea: Code(s): G47.33 - Obstructive sleep apnea (adult) (pediatric) Status: Chronic Assessment and Plan: BiPAP per home parameters. Additional Plan DVT prophylaxis -Lovenox Subjective Date/time seen: 02/04/21 10:34 Interval history: 65 year old gentleman with past medical history including but not limited to ulcerative colitis, chronic osteoarthritis and back pain and peripheral neuropathy, SANJAY compliant with CPAP, restless leg syndrome was transferred from outside hospital. He is admitted with sepsis and CAP. Pt had ct chest yesterday which showed pneumonia no PE. Pt feeling tired today sleeping in his room Review of Systems Review of Systems: All systems reviewed & are unremarkable except as noted in HPI and below Exam Narrative: Pt is sleeping in his room Abdomen: Normal bowel sounds. Obese. Soft. NT. ND. Extremities: No clubbing, cyanosis or edema. Warm : Linder in place Neurologic: Follows commands. Moves all 4 extremities PERRL alert oriented x3 Skin: No Rash Objective Data Vital Signs Vital Signs: Vital Signs - 24 hr 02/03/21 14:05 02/03/21 20:00 02/03/21 20:36 Temperature 36.7 C 36.4 C Pulse Rate 56 L 62 62 Respiratory Rate 18 16 16 Blood Pressure 152/74 H 159/71 H Pulse Oximetry 95 98 98 02/03/21 21:33 02/04/21 05:41 Temperature 36.9 C Pulse Rate 58 L Respiratory Rate 20 Blood Pressure 119/81 Pulse Oximetry 98 97 Intake/Output Intake/Output: Intake & Output 02/01/21 02/02/21 02/03/21 02/04/21 23:59 23:59 23:59 23:59 Intake Total 1800 1360 2830 1390 Output Total 300 Balance 1500 1360 2830 1390 Meds/Results Medications: Active Medications Generic Name Dose Route Start Last Admin Trade Name Freq PRN Reason Stop Dose Admin Acetaminophen 650 mg 01/31/21 06:12 01/31/21 21:45 Acetaminophen 325 Mg Tablet PO 650 mg Q4H PRN Administration Mild Pain (1-3) or Fever Al Hydrox/Mg Hydrox/Simethicone 30 ml 01/31/21 06:12 Mag Hydrox/Al Hydrox/Simeth 30 Ml Udc PO QID PRN Dyspepsia Aspirin 81 mg 02/03/21 11:00 02/04/21 08:42 Aspirin 81 Mg Enteric Tablet PO 03/06/21 10:59 81 mg DAILY JULIANNA Administration Clonazepam 1 mg 02/03/21 21:00 02/03/21 20:37 Clonazepam (*Crx) 0.5 Mg Tablet PO 1 mg HS JULIANNA Administration Cyanocobalamin 1,000 mcg 02/03/21 11:00 02/04/21 08:40 Cyanocobalamin 1,000 Mcg Tablet PO 1,000 mcg DAILY JULIANNA Administration Docosanol 1 applic 02/02/21 15:00 02/04/21 08:42 Docosanol 10% Cream 2 Gm TOPICAL 1 applic 5 TIMES DAILY JULIANNA Administration Docusate Sodium 100 mg 02/03/21 13:25 Docusate Sodium 100 Mg Capsule PO DAILY PRN Constipation Enoxaparin Sodium 40 mg 01/31/21 09:00 02/04/21 08:40 Enoxaparin 40 Mg/0.4 Ml Syringe SUB-Q 40 mg D
[2021-02-04] MEDS: POTASSIUM CHLORIDE 20 MEQ TABLET.ER 40 MEQ PO (11:40)
--- NOTE | 2021-02-04 12:52 | PHAR ---
HOME MEDICATION VERIFIED BY PHARMACY: ALLYSON (MESALAMINE) 1.2 GM TABLET TAKE 4 TABLETS PO EVERY DAY RX#[id number]
[2021-02-04 14:20] VITALS: BP 138/68; PULSE 57; RESP 18; TEMP 36.2; O2SAT 96
[2021-02-04] MEDS: clonazePAM (*CRX) 0.5 MG TABLET 1 MG PO (20:46)
[2021-02-04 21:17] VITALS: BP 162/77; PULSE 64; RESP 16; TEMP 36.7; O2SAT 98
[2021-02-04 22:30] VITALS: PULSE 64; O2SAT 98
[2021-02-04] MEDS: MORPHINE SULFATE (*CRX) 2 MG/ML INJ IV PUSH (23:28)
[2021-02-05 01:15] VITALS: PULSE 62; O2SAT 98
[2021-02-05 05:19] VITALS: BP 137/60; PULSE 53; RESP 20; TEMP 36.7; O2SAT 97
[2021-02-05] MEDS: GABAPENTIN 300 MG CAPSULE 600 MG PO ×3 (08:02→16:45)
[2021-02-05] MEDS: POTASSIUM CHLORIDE 20 MEQ TABLET.ER 40 MEQ PO (08:03)
[2021-02-05] MEDS: MAGNESIUM OXIDE 200 MG TABLET PO (08:03)
[2021-02-05] MEDS: MULTIVITAMINS THERAPEUTIC TAB (*BKC) 1 TABLET PO (08:03)
[2021-02-05] MEDS: TAMSULOSIN HCL 0.4 MG CAPSULE PO (08:03)
[2021-02-05] MEDS: FERROUS SULFATE 324 MG TABLET PO (08:03)
[2021-02-05] MEDS: CHOLECALCIFEROL 1,000 UNITS TABLET 5000 UNITS PO (08:03)
[2021-02-05] MEDS: CYANOCOBALAMIN 1,000 MCG TABLET 1000 MCG PO (08:03)
[2021-02-05] MEDS: ASPIRIN 81 MG ENTERIC TABLET PO (08:03)
[2021-02-05] MEDS: PANTOPRAZOLE 40 MG TABLET PO (08:03)
[2021-02-05] MEDS: THIAMINE HCL 50 MG TABLET PO (08:03)
[2021-02-05] MEDS: SACCHAROMYCES BOULARDII 250 MG CAPSULE PO ×3 (08:03→16:46)
[2021-02-05] MEDS: MELOXICAM 7.5 MG TABLET 15 MG PO (08:03)
[2021-02-05] MEDS: THIAMINE HCL 100 MG TABLET 200 MG PO (08:04)
[2021-02-05] MEDS: LIDOCAINE 5% PATCH 1 PATCH TRANSDERM (08:04)
[2021-02-05] MEDS: ENOXAPARIN 40 MG/0.4 ML SYRINGE SUB-Q (08:05)
[2021-02-05] MEDS: DOCOSANOL 10% CREAM 2 GM 1 APPLIC TOPICAL ×5 (08:06→20:15)
[2021-02-05 08:19] LABS: Hematocrit 41.4 % (42.0-52.0); Hemoglobin 14.2 g/dL (14.0-18.0); Mean Corpuscular HGB Conc 34.3 g/dl (32-36); Mean Corpuscular Hemoglobin 31.1 pg (26-34); Mean Corpuscular Volume 90.8 fl (80-100); Mean Platelet Volume 9.8 fl (7.4-10.4); Platelet Count Result 253 k/mm3 (150-375); Red Blood Count 4.56 M/mm3 (4.6-6.20); Red Cell Distribution Width 12.4 % (11.5-14.5); White Blood Count 10.4 K/mm3 (4.5-10.0)
[2021-02-05 08:25] LABS: Alanine Aminotransferase 25 U/L (4-50); Albumin Level 3.8 g/dL (3.5-5.1); Alkaline Phosphatase 64 U/L (38-126); Anion Gap 6 mmol/L (8-16); Aspartate Amino Transferase 30 U/L (17-59); Bilirubin,Total 0.4 mg/dL (0.2-1.3); Blood Urea Nitrogen 11 mg/dL (9-20); Calcium 9.1 mg/dL (8.4-10.2); Carbon Dioxide 27 mmol/L (22-30); Chloride 104 mmol/L (98-107); Estimated CRCL calculation 80 ml/min; Estimated Glomerular Filt Rate > 60; Glucose 122 mg/dL (65-110); Magnesium 1.9 mg/dL (1.6-2.3); Potassium 3.5 mmol/L (3.4-5.0); Sodium 137 mmol/L (137-145)
--- NOTE | 2021-02-05 10:54 | PM.IMPN ---
Progress Note: A&P Assessment and Plan (1) Sepsis: Code(s): A41.9 - Sepsis, unspecified organism Status: Resolved Assessment and Plan: Acute sepsis secondary to community-acquired pneumonia, resolved after fluid hydration (2) Community acquired pneumonia: Code(s): J18.9 - Pneumonia, unspecified organism Status: Acute Assessment and Plan: Patient presented with productive cough. cultures are negative to date. Continue broad-spectrum IV antibiotics with vancomycin and Zosyn.Pt had ct chest showing pneumonia no PE. continue current care Add inhalers and robutissin (3) Elevated brain natriuretic peptide (BNP) level: Code(s): R79.89 - Other specified abnormal findings of blood chemistry Status: Acute Assessment and Plan: Chest x-ray with patchy paced opacities in the mid and lower lung zones with a perihilar predominance, suggestive of pulmonary edema versus pneumonia, rpt CXR tony am (4) Pleuritic chest pain: Code(s): R07.81 - Pleurodynia Status: Acute Assessment and Plan: Pain management with lidocaine patch, NSAID and Mittie. pleuritic chest pain. (5) Obstructive sleep apnea: Code(s): G47.33 - Obstructive sleep apnea (adult) (pediatric) Status: Chronic Assessment and Plan: BiPAP per home parameters. Additional Plan DVT prophylaxis -Lovenox Subjective Date/time seen: 02/05/21 10:54 Interval history: 65 year old gentleman with past medical history including but not limited to ulcerative colitis, chronic osteoarthritis and back pain and peripheral neuropathy, SANJAY compliant with CPAP, restless leg syndrome was transferred from outside hospital. He is admitted with sepsis and CAP. Pt had ct chest yesterday which showed pneumonia no PE. Pt having a persistent dry cough in the room Review of Systems Review of Systems: All systems reviewed & are unremarkable except as noted in HPI and below Exam Narrative: Pt is sleeping in his room CHest : BL exp wheezes scattered Abdomen: Normal bowel sounds. Obese. Soft. NT. ND. Extremities: No clubbing, cyanosis or edema. Warm : Linder in place Neurologic: Follows commands. Moves all 4 extremities PERRL alert oriented x3 Skin: No Rash Objective Data Vital Signs Vital Signs: Vital Signs - 24 hr 02/04/21 14:20 02/04/21 21:17 02/05/21 05:19 Temperature 36.2 C L 36.7 C 36.7 C Pulse Rate 57 L 64 53 L Respiratory Rate 18 16 20 Blood Pressure 138/68 162/77 H 137/60 Pulse Oximetry 96 98 97 Intake/Output Intake/Output: Intake & Output 02/02/21 02/03/21 02/04/21 02/05/21 23:59 23:59 23:59 23:59 Intake Total 1360 2830 4720 540 Balance 1360 2830 4720 540 Meds/Results Medications: Active Medications Generic Name Dose Route Start Last Admin Trade Name Freq PRN Reason Stop Dose Admin Acetaminophen 650 mg 01/31/21 06:12 01/31/21 21:45 Acetaminophen 325 Mg Tablet PO 650 mg Q4H PRN Administration Mild Pain (1-3) or Fever Al Hydrox/Mg Hydrox/Simethicone 30 ml 01/31/21 06:12 Mag Hydrox/Al Hydrox/Simeth 30 Ml Udc PO QID PRN Dyspepsia Albuterol 2 puff 02/05/21 09:11 Albuterol Sulfate (*Sp) Aerosol 1 Puff INHALATION Q6HRT PRN Shortness Of Breath Aspirin 81 mg 02/03/21 11:00 02/05/21 08:03 Aspirin 81 Mg Enteric Tablet PO 03/06/21 10:59 81 mg DAILY JULIANNA Administration Benzonatate 200 mg 02/05/21 13:00 Benzonatate 100 Mg Capsule PO TID JULIANNA Clonazepam 1 mg 02/03/21 21:00 02/04/21 20:46 Clonazepam (*Crx) 0.5 Mg Tablet PO 1 mg HS JULIANNA Administration Cyanocobalamin 1,000 mcg 02/03/21 11:00 02/05/21 08:03 Cyanocobalamin 1,000 Mcg Tablet PO 1,000 mcg DAILY JULIANNA Administration Docosanol 1 applic 02/02/21 15:00 02/05/21 08:06 Docosanol 10% Cream 2 Gm TOPICAL 1 applic 5 TIMES DAILY JULIANNA Administration Docusate Sodium 100 mg 02/03/21 13:25 Docusate Sodium 100 Mg Capsule PO
[2021-02-05] MEDS: guaiFENesin/DEXTROMETHORPHAN 10 ML UDC 5 ML PO ×2 (11:56→20:14)
[2021-02-05] MEDS: BENZONATATE 100 MG CAPSULE 200 MG PO ×2 (12:02→16:45)
[2021-02-05 14:00] VITALS: BP 149/71; PULSE 63; RESP 18; TEMP 36.3; O2SAT 98
[2021-02-05] MEDS: traMADol HCL (*CRX) 50 MG TABLET PO (20:15)
[2021-02-05] MEDS: clonazePAM (*CRX) 0.5 MG TABLET 1 MG PO (20:17)
[2021-02-05 21:43] VITALS: BP 150/77; PULSE 63; RESP 20; TEMP 36.3; O2SAT 94
[2021-02-05 22:35] VITALS: PULSE 64; O2SAT 95
[2021-02-06 04:43] VITALS: BP 146/66; PULSE 60; RESP 16; TEMP 36.1; O2SAT 96
[2021-02-06] MEDS: guaiFENesin/DEXTROMETHORPHAN 10 ML UDC 5 ML PO ×2 (05:46→20:37)
[2021-02-06 06:45] VITALS: PULSE 63; O2SAT 97
[2021-02-06] MEDS: LIDOCAINE 5% PATCH 1 PATCH TRANSDERM (08:31)
[2021-02-06] MEDS: ENOXAPARIN 40 MG/0.4 ML SYRINGE SUB-Q (08:31)
[2021-02-06] MEDS: MELOXICAM 7.5 MG TABLET 15 MG PO (08:32)
[2021-02-06] MEDS: PANTOPRAZOLE 40 MG TABLET PO (08:32)
[2021-02-06] MEDS: FERROUS SULFATE 324 MG TABLET PO (08:32)
[2021-02-06] MEDS: SACCHAROMYCES BOULARDII 250 MG CAPSULE PO ×3 (08:32→17:14)
[2021-02-06] MEDS: POTASSIUM CHLORIDE 20 MEQ TABLET.ER 40 MEQ PO (08:32)
[2021-02-06] MEDS: MAGNESIUM OXIDE 200 MG TABLET PO (08:32)
[2021-02-06] MEDS: THIAMINE HCL 100 MG TABLET 200 MG PO (08:33)
[2021-02-06] MEDS: GABAPENTIN 300 MG CAPSULE 600 MG PO ×3 (08:33→17:14)
[2021-02-06] MEDS: ASPIRIN 81 MG ENTERIC TABLET PO (08:33)
[2021-02-06] MEDS: BENZONATATE 100 MG CAPSULE 200 MG PO ×3 (08:33→17:14)
[2021-02-06] MEDS: CHOLECALCIFEROL 1,000 UNITS TABLET 5000 UNITS PO (08:33)
[2021-02-06] MEDS: THIAMINE HCL 50 MG TABLET PO (08:33)
[2021-02-06] MEDS: MULTIVITAMINS THERAPEUTIC TAB (*BKC) 1 TABLET PO (08:33)
[2021-02-06] MEDS: CYANOCOBALAMIN 1,000 MCG TABLET 1000 MCG PO (08:33)
[2021-02-06] MEDS: TAMSULOSIN HCL 0.4 MG CAPSULE PO (08:33)
[2021-02-06] MEDS: DOCOSANOL 10% CREAM 2 GM 1 APPLIC TOPICAL ×5 (08:34→20:34)
--- NOTE | 2021-02-06 13:21 | PM.IMPN ---
Progress Note: A&P Assessment and Plan (1) Sepsis: Code(s): A41.9 - Sepsis, unspecified organism Status: Resolved Assessment and Plan: Acute sepsis secondary to community-acquired pneumonia, resolved after fluid hydration (2) Community acquired pneumonia: Code(s): J18.9 - Pneumonia, unspecified organism Status: Acute Assessment and Plan: Patient presented with productive cough. blood and sputum cultures are negative to date. Continue broad-spectrum IV antibiotics with vancomycin day 4 and Zosyn day 6. Pt had ct chest showing R sided pneumonia no PE. Continue current care pt doing better with inhalers and Robitussin. hopeful dc in 1-2 days time (3) Elevated brain natriuretic peptide (BNP) level: Code(s): R79.89 - Other specified abnormal findings of blood chemistry Status: Acute Assessment and Plan: Chest x-ray with patchy paced opacities in the mid and lower lung zones with a perihilar predominance, suggestive of pulmonary edema versus pneumonia, rpt CXR shows improved with R sided pneumonia (4) Pleuritic chest pain: Code(s): R07.81 - Pleurodynia Status: Resolved Assessment and Plan: Pain management with lidocaine patch, NSAID and Morgan. No complaints of pleuritic chest pain. (5) Obstructive sleep apnea: Code(s): G47.33 - Obstructive sleep apnea (adult) (pediatric) Status: Chronic Assessment and Plan: BiPAP per home parameters. Additional Plan DVT prophylaxis -Lovenox Subjective Date/time seen: 02/06/21 13:21 Interval history: 65 year old gentleman with past medical history including but not limited to ulcerative colitis, chronic osteoarthritis and back pain and peripheral neuropathy, SANJAY compliant with CPAP, restless leg syndrome was transferred from outside hospital. He is admitted with sepsis and CAP. Pt had ct chest yesterday which showed pneumonia no PE. Pts cough is gone but still feels lethargic and unwell. Review of Systems Review of Systems: All systems reviewed & are unremarkable except as noted in HPI and below Exam Narrative: Pt is unwell CHest : R side decreased BS no added sounds Abdomen: Normal bowel sounds. Obese. Soft. NT. ND. Extremities: No clubbing, cyanosis or edema. Warm : Linder in place Neurologic: Follows commands. Moves all 4 extremities PERRL alert oriented x3 Skin: No Rash Objective Data Vital Signs Vital Signs: Vital Signs - 24 hr 02/05/21 14:00 02/05/21 21:43 02/05/21 22:35 Temperature 36.3 C L 36.3 C L Pulse Rate 63 63 64 Respiratory Rate 18 20 Blood Pressure 149/71 H 150/77 H Pulse Oximetry 98 94 95 02/06/21 04:43 02/06/21 06:45 Temperature 36.1 C L Pulse Rate 60 63 Respiratory Rate 16 Blood Pressure 146/66 H Pulse Oximetry 96 97 Intake/Output Intake/Output: Intake & Output 02/03/21 02/04/21 02/05/21 02/06/21 23:59 23:59 23:59 23:59 Intake Total 2830 4720 2980 1340 Output Total 700 Balance 2830 4720 2980 640 Meds/Results Medications: Active Medications Generic Name Dose Route Start Last Admin Trade Name Freq PRN Reason Stop Dose Admin Acetaminophen 650 mg 01/31/21 06:12 01/31/21 21:45 Acetaminophen 325 Mg Tablet PO 650 mg Q4H PRN Administration Mild Pain (1-3) or Fever Al Hydrox/Mg Hydrox/Simethicone 30 ml 01/31/21 06:12 Mag Hydrox/Al Hydrox/Simeth 30 Ml Udc PO QID PRN Dyspepsia Albuterol 2 puff 02/05/21 09:11 Albuterol Sulfate (*Sp) Aerosol 1 Puff INHALATION Q6HRT PRN Shortness Of Breath Aspirin 81 mg 02/03/21 11:00 02/06/21 08:33 Aspirin 81 Mg Enteric Tablet PO 03/06/21 10:59 81 mg DAILY JULIANNA Administration Benzonatate 200 mg 02/05/21 13:00 02/06/21 12:20 Benzonatate 100 Mg Capsule PO 200 mg TID JULIANNA Administration Clonazepam 1 mg 02/03/21 21:00 02/05/21 20:17 Clonazepam (*Crx) 0.5 Mg Tablet PO 1 mg HS JULIANNA Administration Cyanocobalamin 1,000 mc
[2021-02-06 14:00] VITALS: BP 153/77; PULSE 72; RESP 18; TEMP 36.7; O2SAT 98
[2021-02-06] MEDS: clonazePAM (*CRX) 0.5 MG TABLET 1 MG PO (20:38)
[2021-02-06 22:00] VITALS: BP 121/51; PULSE 63; PULSE 64; RESP 16; TEMP 37.2; O2SAT 95; O2SAT 96
[2021-02-06 22:02] VITALS: PULSE 64; O2SAT 96
[2021-02-06] MEDS: MORPHINE SULFATE (*CRX) 2 MG/ML INJ IV PUSH (23:21)
[2021-02-07 04:04] VITALS: PULSE 62; O2SAT 95
[2021-02-07] MEDS: ALBUTEROL SULFATE (*SP) AEROSOL 1 PUFF 2 PUFF INHALATION ×4 (04:54→20:40)
[2021-02-07 05:15] LABS: Estimated CRCL calculation 54 ml/min; Estimated Glomerular Filt Rate 47
[2021-02-07 05:33] VITALS: BP 133/55; PULSE 66; RESP 16; TEMP 36.9; O2SAT 97
[2021-02-07] MEDS: CHOLECALCIFEROL 1,000 UNITS TABLET 5000 UNITS PO (07:59)
[2021-02-07] MEDS: THIAMINE HCL 100 MG TABLET 200 MG PO (07:59)
[2021-02-07] MEDS: MULTIVITAMINS THERAPEUTIC TAB (*BKC) 1 TABLET PO (07:59)
[2021-02-07] MEDS: MAGNESIUM OXIDE 200 MG TABLET PO (07:59)
[2021-02-07] MEDS: TAMSULOSIN HCL 0.4 MG CAPSULE PO (07:59)
[2021-02-07] MEDS: MELOXICAM 7.5 MG TABLET 15 MG PO (07:59)
[2021-02-07] MEDS: GABAPENTIN 300 MG CAPSULE 600 MG PO ×3 (07:59→16:51)
[2021-02-07] MEDS: CYANOCOBALAMIN 1,000 MCG TABLET 1000 MCG PO (07:59)
[2021-02-07] MEDS: FERROUS SULFATE 324 MG TABLET PO (07:59)
[2021-02-07] MEDS: BENZONATATE 100 MG CAPSULE 200 MG PO ×3 (07:59→16:51)
[2021-02-07] MEDS: PANTOPRAZOLE 40 MG TABLET PO (07:59)
[2021-02-07] MEDS: POTASSIUM CHLORIDE 20 MEQ TABLET.ER 40 MEQ PO (07:59)
[2021-02-07] MEDS: SACCHAROMYCES BOULARDII 250 MG CAPSULE PO ×3 (07:59→16:51)
[2021-02-07] MEDS: ASPIRIN 81 MG ENTERIC TABLET PO (07:59)
[2021-02-07] MEDS: ENOXAPARIN 40 MG/0.4 ML SYRINGE SUB-Q (07:59)
[2021-02-07] MEDS: LIDOCAINE 5% PATCH 1 PATCH TRANSDERM (08:00)
[2021-02-07] MEDS: THIAMINE HCL 50 MG TABLET PO (08:06)
[2021-02-07] MEDS: DOCOSANOL 10% CREAM 2 GM 1 APPLIC TOPICAL ×5 (08:06→21:33)
[2021-02-07 08:11] LABS: Anion Gap 9 mmol/L (8-16); Blood Urea Nitrogen 15 mg/dL (9-20); Calcium 9.6 mg/dL (8.4-10.2); Carbon Dioxide 25 mmol/L (22-30); Chloride 108 mmol/L (98-107); Estimated CRCL calculation 54 ml/min; Estimated Glomerular Filt Rate 47; Glucose 116 mg/dL (65-110); Potassium 3.9 mmol/L (3.4-5.0); Sodium 142 mmol/L (137-145)
[2021-02-07 08:17] LABS: Vancomycin Trough 22.7 ug/mL (10.0-20.0)
[2021-02-07 09:17] LABS: Hematocrit 41.2 % (42.0-52.0); Hemoglobin 14.1 g/dL (14.0-18.0); Mean Corpuscular HGB Conc 34.2 g/dl (32-36); Mean Corpuscular Hemoglobin 31.5 pg (26-34); Mean Platelet Volume 9.7 fl (7.4-10.4); Platelet Count Result 292 k/mm3 (150-375); Red Blood Count 4.48 M/mm3 (4.6-6.20); Red Cell Distribution Width 12.6 % (11.5-14.5); White Blood Count 10.9 K/mm3 (4.5-10.0)
--- NOTE | 2021-02-07 11:45 | PCNWS ---
Weekly nutritional screen. Patient is tolerating current diet with adequate intake. Diet is heart healthy and current intake is 100% of meals. No weight loss reported. No nutritional needs at this time.
--- NOTE | 2021-02-07 13:44 | PM.IMPN ---
Progress Note: A&P Assessment and Plan (1) Sepsis: Code(s): A41.9 - Sepsis, unspecified organism Status: Resolved Assessment and Plan: Acute sepsis secondary to community-acquired pneumonia. Sepsis has resolved. Blood cultures negative. (2) Community acquired pneumonia: Code(s): J18.9 - Pneumonia, unspecified organism Status: Acute Assessment and Plan: Patient presented with productive cough. CXR showed patchy airspace opacities and CTA showed right upper lobe consolidation. He was treated with broad-spectrum IV vancomycin and Zosyn and has completed 7 days of antibiotic therapy. CXR 02/06 demonstrated interval improvement. Continue with supportive care. (3) Elevated brain natriuretic peptide (BNP) level: Code(s): R79.89 - Other specified abnormal findings of blood chemistry Status: Acute Assessment and Plan: No evidence to suggest congestion on CXR. There is mild cardiomegaly. Echo performed on 01 31 showed normal EF 55-60% and normal diastolic function. (4) Pleuritic chest pain: Code(s): R07.81 - Pleurodynia Status: Resolved Assessment and Plan: Resolved. Continue supportive care (5) Obstructive sleep apnea: Code(s): G47.33 - Obstructive sleep apnea (adult) (pediatric) Status: Chronic Assessment and Plan: CPAP at night (6) Acute kidney injury: Code(s): N17.9 - Acute kidney failure, unspecified Status: Acute Assessment and Plan: Creatinine normal on admission with increased up to 1.5 today. Likely related to combination with vancomycin and Zosyn or schedule daily NSAID therapy. Vancomycin and Zosyn have been discontinued. Meloxicam discontinued. Start on gentle IV fluids. Plan for renal ultrasound if no improvement in renal function tomorrow. Subjective Date/time seen: 02/07/21 13:44 Interval history: Date of service: 02/07/2021 Ross medley is a 65-year-old male with a history of hypertension, hyperlipidemia, ID a, SANJAY on CPAP, ulcerative colitis, and several other medical problems who is seen in follow-up for community-acquired pneumonia. He is feeling well today. His respiratory symptoms have improved significantly. He still has occasional cough that is productive of clear-white sputum, though he states this is decreasing. He denies shortness of breath. His biggest complaint today is that he feels very fatigued. He has not been having as much activity as he is used to and gets worn down more quickly. He has been out and walking the halls and trying to increase his activity. Denies dizziness, lightheadedness, weakness. No nausea, vomiting, fever, or chills. No chest pain. Denies urinary symptoms. His appetite is good. Review of Systems Review of Systems: All systems reviewed & are unremarkable except as noted in HPI and below Exam Narrative: Mr. Medley is a well-nourished, well-appearing 65-year-old male who is lying supine in bed. He appears comfortable and is in NARD. Neuro: awake, alert and oriented x4, speech clear, no focal neuro deficits noted HEENMT: normocephalic, atraumatic, EOMI, sclerae anicteric, moist oral mucosa Neck: supple, no lymphadenopathy Respiratory: clear to auscultation bilaterally, nonlabored breathing Cardio: regular rate, regular rhythm with S1-S2 Abdomen: nondistended, normoactive bowel sounds, soft, nontender to palpation Extremities: no edema, erythema, or tenderness to palpation, DP pulses 2+ bilaterally Skin: no rashes or lesions, warm and dry Psych: appropriate mood and affect, judgment and insight intact Objective Data Vital Signs Vital Signs: Vital Signs - 24 hr 02/06/21 14:00 02/06/21 22:00 02/06/21 22:02 Temperature 98.0 F 99.0 F Pulse Rate 72 64 64 Respiratory Rate 18 16 Blood Pressure 153/77 H 121/51 L Pulse Oximetry 98 96 96 02/07/21 04:04 02/07/21 05:33 Temperature 98.5 F Pulse Rate 62 66 Respir
[2021-02-07 14:00] VITALS: BP 140/71; PULSE 86; RESP 16; TEMP 36.8; O2SAT 96
[2021-02-07] MEDS: SODIUM CHLORIDE 0.9% IV 1,000 ML 95 ML IV CONT (14:40)
[2021-02-07 19:21] VITALS: BP 157/71; PULSE 78; RESP 17; TEMP 37.1; O2SAT 97
[2021-02-07 20:46] VITALS: PULSE 75
[2021-02-07] MEDS: clonazePAM (*CRX) 0.5 MG TABLET 1 MG PO (21:34)
[2021-02-07] MEDS: guaiFENesin/DEXTROMETHORPHAN 10 ML UDC 5 ML PO (21:40)
[2021-02-08] MEDS: SODIUM CHLORIDE 0.9% IV 1,000 ML 95 ML IV CONT (00:42)
[2021-02-08] MEDS: rOPINIRole HCL 0.5 MG TABLET PO (01:23)
[2021-02-08 02:20] VITALS: PULSE 75
[2021-02-08 03:08] VITALS: BP 133/59; PULSE 68; RESP 16; TEMP 36.5; O2SAT 95
[2021-02-08 05:49] LABS: Hematocrit 37.5 % (42.0-52.0); Hemoglobin 12.6 g/dL (14.0-18.0); Mean Corpuscular HGB Conc 33.6 g/dl (32-36); Mean Corpuscular Hemoglobin 31.3 pg (26-34); Mean Corpuscular Volume 93.3 fl (80-100); Mean Platelet Volume 9.4 fl (7.4-10.4); Platelet Count Result 259 k/mm3 (150-375); Red Blood Count 4.02 M/mm3 (4.6-6.20); Red Cell Distribution Width 12.5 % (11.5-14.5); White Blood Count 10.8 K/mm3 (4.5-10.0)
[2021-02-08 06:00] LABS: Anion Gap 5 mmol/L (8-16); Blood Urea Nitrogen 14 mg/dL (9-20); Calcium 9.2 mg/dL (8.4-10.2); Carbon Dioxide 28 mmol/L (22-30); Chloride 107 mmol/L (98-107); Estimated CRCL calculation 59 ml/min; Estimated Glomerular Filt Rate 51; Glucose 129 mg/dL (65-110); Potassium 3.8 mmol/L (3.4-5.0); Sodium 140 mmol/L (137-145)
[2021-02-08] MEDS: ALBUTEROL SULFATE (*SP) AEROSOL 1 PUFF 2 PUFF INHALATION (09:08)
[2021-02-08] MEDS: ENOXAPARIN 40 MG/0.4 ML SYRINGE SUB-Q (09:29)
[2021-02-08] MEDS: CHOLECALCIFEROL 1,000 UNITS TABLET 5000 UNITS PO (09:29)
[2021-02-08] MEDS: SACCHAROMYCES BOULARDII 250 MG CAPSULE PO ×2 (09:29→12:39)
[2021-02-08] MEDS: BENZONATATE 100 MG CAPSULE 200 MG PO ×2 (09:29→12:38)
[2021-02-08] MEDS: THIAMINE HCL 50 MG TABLET PO (09:30)
[2021-02-08] MEDS: THIAMINE HCL 100 MG TABLET 200 MG PO (09:30)
[2021-02-08] MEDS: TAMSULOSIN HCL 0.4 MG CAPSULE PO (09:30)
[2021-02-08] MEDS: FERROUS SULFATE 324 MG TABLET PO (09:30)
[2021-02-08] MEDS: MULTIVITAMINS THERAPEUTIC TAB (*BKC) 1 TABLET PO (09:30)
[2021-02-08] MEDS: CYANOCOBALAMIN 1,000 MCG TABLET 1000 MCG PO (09:30)
[2021-02-08] MEDS: ASPIRIN 81 MG ENTERIC TABLET PO (09:30)
[2021-02-08] MEDS: GABAPENTIN 300 MG CAPSULE 600 MG PO ×2 (09:31→12:38)
[2021-02-08] MEDS: DOCOSANOL 10% CREAM 2 GM 1 APPLIC TOPICAL ×2 (09:31→12:39)
[2021-02-08] MEDS: POTASSIUM CHLORIDE 20 MEQ TABLET.ER 40 MEQ PO (09:31)
[2021-02-08] MEDS: MAGNESIUM OXIDE 200 MG TABLET PO (09:32)
[2021-02-08] MEDS: PANTOPRAZOLE 40 MG TABLET PO (09:32)
--- NOTE | 2021-02-08 12:04 | PM.DS ---
DS: Admitting Diagnosis Discharge Date 02/08/2021 Admitting Diagnosis Sepsis DS: Discharge Diagnosis Discharge Diagnosis (1) Sepsis: Code(s): A41.9 - Sepsis, unspecified organism Status: Resolved Assessment and Plan: Acute sepsis secondary to community-acquired pneumonia. Sepsis has resolved. Blood cultures negative. (2) Community acquired pneumonia: Code(s): J18.9 - Pneumonia, unspecified organism Status: Acute Assessment and Plan: Patient presented with productive cough. CXR showed patchy airspace opacities and CTA showed right upper lobe consolidation. He was treated with broad-spectrum IV vancomycin and Zosyn and has completed 7 days of antibiotic therapy. Sputum culture negative. Urinary Legionella pneumococcal antigens negative. CXR 02/06 demonstrated interval improvement. Supportive care provided (3) Elevated brain natriuretic peptide (BNP) level: Code(s): R79.89 - Other specified abnormal findings of blood chemistry Status: Acute Assessment and Plan: No evidence to suggest congestion on CXR. There is mild cardiomegaly. Echo performed on 01/31 showed normal EF 55-60% and normal diastolic function. (4) Pleuritic chest pain: Code(s): R07.81 - Pleurodynia Status: Resolved Assessment and Plan: Resolved. Continue supportive care (5) Obstructive sleep apnea: Code(s): G47.33 - Obstructive sleep apnea (adult) (pediatric) Status: Chronic Assessment and Plan: CPAP at night (6) Acute kidney injury: Code(s): N17.9 - Acute kidney failure, unspecified Status: Acute Assessment and Plan: Creatinine normal on admission with increase up to 1.5 on 02/07. Likely related to combination of vancomycin and Zosyn also in the setting of scheduled daily NSAID therapy. Vancomycin and Zosyn discontinued upon completion. Meloxicam discontinued. Renal function with mild improvement, and anticipate return back to baseline with time. Repeat BMP in 1 week for further monitoring. DS: Summary Hospital Course Hospital Course: Date of admission: 01/31/2021 Date of discharge: 02/08/2021 Ross Guadarrama is a 65-year-old male with a history of hypertension, hyperlipidemia, ID a, SANJAY on CPAP, ulcerative colitis, and several other medical problems who presented to outside hospital on 01/31 2021 with complaints of fevers and chills ongoing for 2 days as well as cough and right-sided chest pain. On presentation to the ER, he was found to be hypotensive and was transferred to this facility for ICU care. His blood pressures improved with fluids and he was able to be transferred to the medical floor. He was treated with IV antibiotics for pneumonia. He had symptomatic improvement. He began feeling much better and requested discharge home. Given his overall improvement, he was determined to no longer require inpatient care and was felt to be stable for discharge. We discussed worrisome signs and symptoms for which to return and he was educated on his medications. Was discharged in hemodynamically stable condition on 02/08/2021. Status at Discharge Functional status at discharge: independent ambulation Overall status at discharge: patient is progressing back to baseline Time Spent with Patient Time attestation: Total time spent providing and/or coordinating discharge services: 45 minutes Time spent: Greater than 30 minutes Exam Narrative: Mr. Guadarrama is a well-nourished, well-appearing 65-year-old male who is lying supine in bed. He appears comfortable and is in NARD. Neuro: awake, alert and oriented x4, speech clear, no focal neuro deficits noted HEENMT: normocephalic, atraumatic, EOMI, sclerae anicteric, moist oral mucosa Neck: supple, no lymphadenopathy Respiratory: clear to auscultation bilaterally, nonlabored breathing Cardio: regular rate, regular rhythm with S1-S2 Abdomen: nondistended, normoactive bow
== END 2021-02-08 13:01 | disposition home or self-care (01) | DRG 871 ==
LOC: ANHICU 16:59 → ANH2MED 02-01 09:04 → ANHICU 02-09 15:38
PROVIDERS: Internal Medicine; Physician Assistant; Admitting Provider Internal Medicine; PCP Emergency Medicine; Visit Provider Internal Medicine
DX: A41.9 Sepsis, unspecified organism (principal); J18.9 Pneumonia, unspecified organism; N17.9 Acute kidney failure, unspecified; G47.33 Obstructive sleep apnea (adult) (pediatric); I10 Essential (primary) hypertension; E78.5 Hyperlipidemia, unspecified; M19.90 Unspecified osteoarthritis, unspecified site; M54.16 Radiculopathy, lumbar region; K21.9 Gastro-esophageal reflux disease without esophagitis; K76.0 Fatty (change of) liver, not elsewhere classified; D50.9 Iron deficiency anemia, unspecified; G60.8 Other hereditary and idiopathic neuropathies; G25.81 Restless legs syndrome; E53.8 Deficiency of other specified B group vitamins; E55.9 Vitamin D deficiency, unspecified; Z87.19 Personal history of other diseases of the digestive system; Z90.49 Acquired absence of other specified parts of digestive tract; Z98.1 Arthrodesis status
CPT/HCPCS: 36415; 71045; 71275; 80048; 80053; 80202; 82565; 83605; 83735; 83880; 84484; 85025; 85027; 85610; 85730; 87040; 87070; 87205; 87449; 87899; 93306; 94640; A9270; C9113; J1650; J2270; J2543; J3370; J7030; Q9967

== ENCOUNTER 2025-01-11 11:27 | Emergency (ER) | payer MEDICARE, SELFPAY ==
--- NOTE | ~2025-01-11 | XR_ITS ---
Examination: XR elbow LT min 3V, XR wrist LT min 3V Clinical History: pain, fall 5 days ago Comparison: None Technique: 4 views left elbow, 4 views left wrist Findings/impression: Left elbow: 1. No fracture or dislocation left elbow. Left wrist: 1. No fracture or dislocation left wrist. Reviewed, dictated and finalized at location R.
[2025-01-11 11:40] VITALS: BP 146/78; PULSE 57; RESP 16; TEMP 36.2; O2SAT 99
--- NOTE | 2025-01-11 11:45 | ED.UPPEXIN ---
HPI - Extremity Injury (Upper) General Chief Complaint: Extremity Injury, Upper Stated Complaint: L Arm Pain Patient presents to the [facility] accompanied by spouse with complaints of continued left lower arm and wrist pain that began about 1 week ago. Patient fell in the yd with some brush. Noted some small abrasions to the left forearm that are healing well but patient reports cannot get comfortable at night due to continued pain. Patient does take daily Celebrex, Tylenol, and tramadol but this is not helping with the pain. Denies any bruising or swelling to any part of the left lower arm. Denies numbness or tingling in arm, hand, or digits. Related Data Home Medications ?Medication ?Instructions ?Recorded ?Confirmed ?Last Taken ?Type cholecalciferol (vitamin D3) 125 125 mcg PO DAILY 09/28/20 01/31/21 09/28/20 History mcg (5,000 unit) tablet clonazepam 1 mg tablet 1 mg PO HS 09/28/20 01/31/21 09/27/20 History cyanocobalamin (vitamin B-12) 1,000 mcg PO DAILY 09/28/20 01/31/21 09/28/20 History 1,000 mcg tablet (Vitamin B-12) ferrous sulfate 325 mg (65 mg 325 mg PO DAILY 09/28/20 01/31/21 Unknown History iron) tablet flaxseed oil 1,000 mg capsule 1,000 mg PO DAILY 09/28/20 01/31/21 Unknown History gabapentin 300 mg capsule 600 mg PO TID 09/28/20 01/31/21 09/28/20 History lactobacillus combination no.4 3 3,000 mmu cells PO DAILY 09/28/20 01/31/21 Unknown History billion cell capsule (Probiotic) multivitamin (Daily Multi-Vitamin 1 tablet PO DAILY 09/28/20 01/31/21 Unknown History tablet) pantoprazole 40 mg tablet,delayed 40 mg PO QAM 09/28/20 01/31/21 Unknown History release thiamine HCl (vitamin B1) 250 mg 250 mg PO DAILY 09/28/20 01/31/21 09/28/20 History tablet (Vitamin B-1) tramadol 50 mg tablet 50 mg PO TID PRN Pain (Scale Score 09/28/20 01/31/21 09/28/20 10:15 History 4-6) coenzyme Q10 100 mg tablet 100 mg PO DAILY 01/31/21 01/31/21 Unknown History docusate sodium 100 mg capsule 100 mg PO DAILY 01/31/21 01/31/21 Unknown History magnesium 250 mg tablet 250 mg PO DAILY 01/31/21 01/31/21 Unknown History meloxicam 15 mg tablet 15 mg PO DAILY 01/31/21 01/31/21 Unknown History Held on 02/08/21. Instructions: Hold until repeat labs and follow up with PCP mesalamine 1.2 gram tablet,delayed 1.2 g PO BID 01/31/21 01/31/21 Unknown History release (Lialda) tamsulosin 0.4 mg capsule 0.4 mg PO DAILY 01/31/21 01/31/21 Unknown History celecoxib 200 mg capsule mg 01/11/25 Unknown History levocetirizine 5 mg tablet mg 01/11/25 Unknown History Allergies Allergy/AdvReac Type Severity Reaction Status Date / Time dexamethasone Allergy Severe Flushing Verified 01/31/21 06:36 ceftriaxone (From Rocephin) AdvReac Headache Verified 09/28/20 14:13 Review of Systems Constitutional: Constitutional: Reports as per HPI, Denies chills, Denies fatigue, Denies fever(s) and Denies weakness Cardiovascular: Cardiovascular: Reports no additional cardiovascular complaints Respiratory: Respiratory: Reports no additional respiratory complaints Gastrointestinal: Gastrointestinal: Reports no additional gastrointestinal complaints Genitourinary: Genitourinary: Reports no additional male genitourinary complaints Musculoskeletal: Musculoskeletal: Reports as per HPI, Reports arthralgias, Denies joint swelling and Denies muscle cramps Integumentary/Breasts: Skin/Breast: Reports as per HPI, Denies erythema and Denies rash Comments: Abrasion left forearm Neurologic: Reports as per HPI, Denies numbness and Denies weakness Psychiatric: Psychiatric: Reports no additional psychiatric complaints Endocrine: Endocrine: Reports no additional endocrine complaints Hematologic/Lymphatic: Hematologic/Lymphatic: Reports no additional hematologic/lymphatic complaints Allergic/Immunologic: Allergic/Immunologic: Reports no additional allergic/immunologic complaints PMFSH Past Medical History Medical History Bilateral knee pain Cholecystectomy planned Chronic lumbar radiculopathy Fatty liver GERD (gastroesophageal reflux disease) Hyperlipidemia Hypertension Insomnia Iron deficiency anemia Obstructive sleep apnea Osteoarthritis Peripheral sensory neuropathy Restless leg syndrome Splenomegaly Ulcerative colitis Ventricular premature contractions Vitamin B12 deficiency Vitamin D deficiency Surgical History Surgical History H/O arthroscopic knee surgery multiple to R knee H/O colectomy In 2014 at [facility] due to ulcerative colitis. H/O hernia repair Hx of cholecystectomy S/P lumbar spinal fusion By Dr Castanon at [facility] 09/24/20 L3-4 OLIF, internal fixation with anterior lumbar plate, and L3 -L4 posterior spinal fusion Family History Family History Father Family history of coronary artery disease Diabetes mellitus Acute myocardial infarction Cerebrovascular accident Grandparent Acute myocardial infarction Cerebrovascular accident Grandparent Acute myocardial infarction Cerebrovascular accident Other Family history of arthritis Social History Social History Social History: Mr. Guadarrama lives at home in [place] with his , Dorie. 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 He and Dorie live in a split-level home, 1 step to enter, once inside patient needs to go a total of 14 steps to reach the main floor. Dorie is in good health and can provide assistance. He denies alcohol, tobacco, or other substance use. PCP is Dr Sudhir De La Torre in [place]. Full code status. Smoking status: Never smoker Second hand tobacco smoke exposure: No Alcohol intake: never Substance use: never Substance use type: does not use Spiritual care concerns: No Exam Const: General: healthy appearing and no acute distress Nutritional Appearance: well nourished Orientation/consciousness: patient oriented x3 Limitations: no limitations Resp: Effort & Inspection: normal respiratory effort Auscultation: clear to auscultation bilaterally Cardio: Rate: regular rate Rhythm: regular rhythm Skin: General skin exam: normal color Rashes: no rashes Wounds: wounds noted Other: minimal healing abrasions to left medial forearm Neuro: General: patient oriented x3 and moves all extremities Speech: normal speech Gait exam (Neuro): Normal gait present Extrem: Left upper extremity: elbow/forearm tenderness of the medial epicondyle and of the radial head, normal ROM, abrasion and distal pulses intact; no unusual warmth, no ecchymosis and no crepitus and wrist normal to inspection, tenderness, abnormal ROM pain with active ROM and pain with passive ROM, normal vascular exam, radial pulse present and ulnar pulse present; inspection normal, no unusual warmth, no abrasions, no lacerations, no crepitus and no deformity Psych: Mental Status: mental status grossly normal Affect: normal affect Attitude: cooperative Course Course Level of Care: Express Care Visit Vital Signs Vital signs: Vital Signs Temperature 97.2 F L 01/11/25 11:40 Pulse Rate 57 L 01/11/25 11:40 Respiratory Rate 16 01/11/25 11:40 Blood Pressure 146/78 H 01/11/25 11:40 Pulse Oximetry 99 01/11/25 11:40 Temperature 97.2 F L 01/11/25 11:40 Pulse Rate 57 L 01/11/25 11:40 Respiratory Rate 16 01/11/25 11:40 Blood Pressure 146/78 H 01/11/25 11:40 Pulse Oximetry 99 01/11/25 11:40 MDM - Extremity Injury (Upper) MDM Narrative Medical decision making narrative: x-rays ordered. The patient was evaluated by myself in the express care. History is obtained from patient who is an independent historian and physical exam was performed. Available medical records were reviewed at this time. Exam findings show no acute concerns or changes; patient is non-toxic appearing and is in no distress. Patient is appropriate for outpatient treatment and follow-up. I have evaluated and discussed social determinants of health with the patient that could potentially impact subsequent diagnosis and treatment plans. Differential diagnosis and treatment plan were discussed with the patient. Patient agrees with discussion and after shared medical decision making agrees with plan of care. All questions were answered to the patient's satisfaction. Differential Diagnosis Differential diagnosis: Likely sprain and strain of wrist, fracture of wrist and fracture of hand Medical Records Attestation: I reviewed the patient's medical records. Imaging Data Attestation: I personally reviewed and interpreted this imaging study as follows: My impression: no fracture, olecranon spur noted. Radiologist's impression: Left elbow: 1. No fracture or dislocation left elbow. Left wrist: 1. No fracture or dislocation left wrist. Reviewed, dictated and finalized at location R. Discharge Plan Discharge Clinical Impression: Contusion of elbow, left, Contusion of left wrist Patient Disposition: Home Condition: Stable Instructions: Antibiotic Form, Contusion in Adults (ED) Additional Instructions: Xray showed no fracture. Minimize activities that aggravate the condition The RICE protocol. Follow the RICE protocol as soon as possible after your injury: Rest your affected limb by not walking on it/not using this. Ice should be immediately applied to keep the swelling down. It can be used for 20 to 30 minutes, three or four times daily. Do not apply ice directly to your skin. Gentle range of motion exercises as tolerated. Elevate affected area above the level of your heart if possible as often as possible during the first 48 hours then as needed for increased swelling. Medication: Nonsteroidal anti-inflammatory drugs (NSAIDs) such as voltaren along with your celebrex can help control pain and swelling. Because they improve function by both reducing swelling and controlling pain, they are a better option for mild sprains than narcotic pain medicines. Please schedule a follow-up visit with your personal physician for further evaluation and treatment within 1week OR If your symptoms persist, change or worsen significantly before you can contact your personal physician then please, without delay, go to the emergency department for further evaluation. Patient Language: Syriac Prescriptions: New cyclobenzaprine 5 mg tablet See Rx Instructions .ROUTE .COMPLEX PRN (Reason: muscle spasm) Qty: 20 0RF Rx Instructions: may take 1-2 tablets by mouth at bedtime No Action celecoxib 200 mg capsule levocetirizine 5 mg tablet multivitamin [Daily Multi-Vitamin] Tablet 1 tablet PO DAILY clonazepam 1 mg Tablet 1 mg PO HS Rx Instructions: for restlass leg syndrome cyanocobalamin (vitamin B-12) [Vitamin B-12] 1,000 mcg Tablet 1,000 mcg PO DAILY thiamine HCl (vitamin B1) [Vitamin B-1] 250 mg Tablet 250 mg PO DAILY tramadol 50 mg Tablet 50 mg PO TID PRN (Reason: Pain (Scale Score 4-6)) flaxseed oil 1,000 mg Capsule 1,000 mg PO DAILY pantoprazole 40 mg Tablet,Delayed Release (Dr/Ec) 40 mg PO QAM ferrous sulfate 325 mg (65 mg iron) Tablet 325 mg PO DAILY gabapentin 300 mg Capsule 600 mg PO TID cholecalciferol (vitamin D3) 125 mcg (5,000 unit) Tablet 125 mcg PO DAILY Probiotic 3 billion cell Capsule 3,000 mmu cells PO DAILY meloxicam 15 mg Tablet 15 mg PO DAILY docusate sodium 100 mg Capsule 100 mg PO DAILY mesalamine [Lialda] 1.2 gram Tablet,Delayed Release (Dr/Ec) 1.2 g PO BID coenzyme Q10 100 mg Tablet 100 mg PO DAILY tamsulosin 0.4 mg Capsule 0.4 mg PO DAILY magnesium 250 mg Tablet 250 mg PO DAILY cyclobenzaprine 10 mg Tablet 10 mg PO TID PRN (Reason: Muscle Spasm) Qty: 30 0RF Rx Instructions: back surgery Follow-up/Referrals: Zenon,Dimas Lira MD [Primary Care Provider] Time of Disposition: 12:05
== END 2025-01-11 12:11 | disposition home or self-care (01) ==
PROVIDERS: Emergency Provider Nurse Practitioner Family; PCP Family Medicine
DX: S50.02XA Contusion of left elbow, initial encounter (principal); S60.212A Contusion of left wrist, initial encounter; W19.XXXA Unspecified fall, initial encounter; I10 Essential (primary) hypertension; E78.5 Hyperlipidemia, unspecified; K76.0 Fatty (change of) liver, not elsewhere classified; K21.9 Gastro-esophageal reflux disease without esophagitis; M19.90 Unspecified osteoarthritis, unspecified site; G25.81 Restless legs syndrome; E55.9 Vitamin D deficiency, unspecified; E53.8 Deficiency of other specified B group vitamins; D50.9 Iron deficiency anemia, unspecified
CPT/HCPCS: 73080; 73110; 99214; G0463